=== PATIENT | female | born 1995 | race Caucasian/White ===

== ENCOUNTER 2019-09-09 17:32 | Emergency (ER) | payer OTHER, SELFPAY ==
[2019-09-09 17:43] VITALS: BP 150/97; PULSE 93; RESP 16; TEMP 37.2; O2SAT 98
--- NOTE | 2019-09-09 18:17 | ED.GENADULT ---
HPI - General Adult General Chief complaint: Urogenital-Female Stated complaint: Cough/fever/Possible Uti Time Seen by Provider: 09/09/19 18:17 Source: patient Mode of arrival: ambulatory Limitations: no limitations History of Present Illness HPI narrative: 24-year-old female patient presents to the [facility] with complaints of urinary symptoms x1 week. Patient states she has had pain with urination, urgency, frequency, low back pain and abdominal cramping. Patient states that she is thinks she might of started running fevers last night because she woke up drenched in sweat. Denies any nausea vomiting or diarrhea. Patient states she has been trying to get into her primary doctors all week to be seen but they could not get her in this week. Patient denies breast-feeding and states that her last. Was about a month ago. Patient states that she has had a little bit of blood noticed when she urinates but she states is very stringy and does not think that is her normal period blood. Related Data Home Medications Medication Instructions Recorded Confirmed alprazolam [Xanax] 0.25 mg PO DAILY 09/09/19 09/09/19 escitalopram oxalate [Lexapro] 20 mg PO DAILY 09/09/19 09/09/19 trazodone 50 mg PO DAILY 09/09/19 09/09/19 Allergies Allergy/AdvReac Type Severity Reaction Status Date / Time poison alana extract Allergy Mild RASH Verified 09/09/19 17:49 Review of Systems Review of Systems: Narrative: CONSTITUTIONAL: Positive subjective fever, denies chills, positive sweats. EYES: Denies visual changes, redness, or discharge. ENT: Denies rhinorrhea, congestion, sore throat, or otalgia. CARDIOVASCULAR: Denies chest pain, palpitations, or edema. RESPIRATORY: Denies cough or dyspnea. GASTROINTESTINAL: Positive lower abdominal cramping, denies nausea, vomiting, or diarrhea. GENITOURINARY: Denies dysuria, positive hematuria. Positive pain with urination, urgency and frequency x1 week SKIN: Denies rash or itching. MUSCULOSKELETAL: Positive low back pain, denies joint pain, or myalgia. NEUROLOGIC: Denies headache, numbness, or weakness. PSYCHIATRIC: Denies anxiety or depression. [facility] Past Medical History Medical History Anxiety Depression Fractures History of left wrist, right arm Hypothyroidism Kidney infection Kidney stones Scoliosis Seizures Sexually transmitted disease UTI (urinary tract infection) Surgical History Surgical History History of appendectomy Hx of tonsillectomy Previous section Social History Social History Smoking status: Never smoker Alcohol intake: never Gender identity (if verbalized by the patient): Female Comments At the time of my signature I agree with nursing past medical history, surgical, social, and family history. There is no relevant family history pertinent to the presenting complaint. Exam Narrative: Exam Narrative: GENERAL: Well-appearing, well-nourished, and in no acute distress. HEAD: Normocephalic, atraumatic. EYES: PERRLA and EOMI. ENT: Nares clear, no rhinorrhea or epistaxis. Mucous membranes moist. Posterior pharynx with no erythema, tonsillar margin, exudates or lesions present. NECK: Supple. No lymphadenopathy CHEST: Clear to auscultation. No respiratory distress. Patient able talk in clear complete sentences. HEART: Regular rate and rhythm. No murmur heard. Normal peripheral pulses. ABDOMEN: Soft, nontender, nondistended, normal active bowel sounds. Bilateral tenderness noted on CVA percussion. EXTREMITIES: Normal range of motion. No edema. SKIN: Warm, dry, no rash. NEURO: No focal deficits. Alert and oriented x3. Course Vital Signs Vital signs: Vital Signs Temperature 37.2 C 09/09/19 17:43 Pulse Rate 93 09/09/19 17:43 Respiratory Rate 16 09/09/19 17:43 Blood Pressure 150/97 H 08/12
== END 2019-09-09 18:32 | disposition home or self-care (01) ==
PROVIDERS: Emergency Provider Nurse Practitioner Family; PCP Family Medicine
DX: N30.01 Acute cystitis with hematuria (principal); F41.9 Anxiety disorder, unspecified; F32.9 Major depressive disorder, single episode, unspecified; E03.9 Hypothyroidism, unspecified; M41.9 Scoliosis, unspecified
CPT/HCPCS: 81003; 81025; 87086; 99213; G0463

== ENCOUNTER 2019-11-18 13:46 | Emergency (ER) | payer OTHER, SELFPAY ==
--- NOTE | ~2019-11-18 | CT_ITS ---
EXAMINATION: CT lumbar spine wo con EXAM DATE: 11/18/2019 15:11 INDICATION: Injury, low back pain. TECHNIQUE: Spiral CT of the lumbar spine was performed without contrast. Axial, coronal and sagittal images were reviewed. The dose-length product (DLP) for this examination was 746.11 mGy-cm. The e xposure was tailored according to patient size (auto mA exposure control), and iterative reconstructi on (ASIR) was used as additional dose reduction technique. There is no prior study for comparison. FINDINGS: The vertebral bodies are aligned in the AP dimension. Vertebral body and disc heights are w ell-maintained. There are no acute fractures identified. There is no spondylolysis. There is mild lum bar facet arthropathy. Neural foramen and central canal appear widely patent. Paraspinal soft tissue is unremarkable. IMPRESSION: 1. Mild lumbar facet arthropathy. 2. No acute findings. Reviewed, dictated and finalized at location A.
--- NOTE | ~2019-11-18 | CT_ITS ---
EXAMINATION: CT pelvis wo con EXAM DATE: 11/18/2019 15:11 INDICATION: Bucked off horse, injury with bilateral hip and low back pain. Initial encounter. TECHNIQUE: Spiral CT pelvis wo con was performed without contrast. Axial, coronal and sagittal imag es were reviewed. The dose-length product (DLP) for this examination was 432.12 mGy-cm. The exposur e was tailored according to patient size (auto mA exposure control), and iterative reconstruction ( IR) was used as additional dose reduction technique. 10/05/2015 FINDINGS: There are no acute hip, pelvic or sacral fractures or dislocations identified. There is no subcutaneous gas. There may be some subcutaneous soft tissue swelling over the right gluteus maximi ze. There are no radiopaque foreign bodies. Uterus and ovaries are unremarkable. Small physiologic free pelvic fluid. IMPRESSION: No hip or pelvic fracture. Reviewed, dictated and finalized at location A. IMPRESSION: No hip or pelvic fracture.
[2019-11-18 13:52] VITALS: BP 147/71; PULSE 83; RESP 16; TEMP 36.8; O2SAT 100
--- NOTE | 2019-11-18 14:03 | PC.NURSE ---
Pt unsure if hit head or LOC, pt c/o back pain and placed in C Collar.
--- NOTE | 2019-11-18 14:38 | PC.NURSE ---
C Collar removed by EDP Dr Freeman.
--- NOTE | 2019-11-18 14:40 | ED.FALL ---
HPI - Fall General Chief Complaint: Fall Stated Complaint: Hip pain; bucked off horse Time Seen by Provider: 11/18/19 14:08 History of Present Illness HPI Narrative: Patient is a 24-year-old female who presents the ER with bilateral hip pain right greater than left since last night. Patient was riding a horse when she got bucked off. She felt a little dizzy after striking the ground but did not lose consciousness. She had pain and her friends had to help her up off the ground and put her in a truck bed. She has had significant pain where she has been unable to walk since the fall beginning today. No numbness or tingling in her lower extremities or in her privates. She has had no inability to urinate/stool. She does not take any pain medication. Pain is worse when she performs flexion at the hip bilaterally. No neck pain. No headache or change in vision at this time. Awake alert and oriented x3. Related Data Home Medications Medication Instructions Recorded Confirmed alprazolam [Xanax] 0.25 mg PO DAILY 09/09/19 09/09/19 escitalopram oxalate [Lexapro] 20 mg PO DAILY 09/09/19 09/09/19 trazodone 50 mg PO HS 09/09/19 09/09/19 Allergies Allergy/AdvReac Type Severity Reaction Status Date / Time poison alana extract Allergy Mild RASH Verified 11/18/19 14:06 Review of Systems Review of Systems: All systems reviewed & are unremarkable except as noted in HPI and below Constitutional: Constitutional: Denies chills, Denies fever(s) and Denies weakness ENT: Denies nasal congestion and Denies sore throat Cardiovascular: Cardiovascular: Denies chest pain and Denies radiating jaw, neck or arm pain Respiratory: Respiratory: Denies cough and Denies dyspnea Gastrointestinal: Gastrointestinal: Denies abdominal pain, Denies nausea and Denies vomiting Musculoskeletal: Musculoskeletal: Reports myalgias, Reports arthralgias and Denies joint swelling Neurologic: Denies confusion, Denies focal weakness, Denies numbness and Denies weakness PMFSH Social History Social History Smoking status: Never smoker Alcohol intake: never Gender identity (if verbalized by the patient): Female Exam Narrative: Exam Narrative: GENERAL: Well-appearing, well-nourished, and in no acute distress. HEAD: Normocephalic, atraumatic. EYES: PERRL and EOMI. ENT: Mucous membranes moist. NECK: Supple. No midline tenderness of cervical spine. Normal range of motion. CHEST: Clear to auscultation. No respiratory distress. HEART: Regular rate and rhythm. Normal peripheral pulses. ABDOMEN: Soft, nontender, nondistended, normal active bowel sounds. EXTREMITIES: Patient has limited forward flexion and external rotation at the hips bilaterally with increased pain over the right hip with palpation. Pain is more towards the buttock than the hip and there is bruising and abrasions noted to the right buttock. Left buttock is free of bruising or abrasions. There are additional abrasions going down the right upper extremity at the elbow but no point tenderness and normal range of motion. SKIN: Warm, dry, no rash. Abrasions as noted above. NEURO: No focal deficits. Alert and oriented x3. Course Course Emergency Course: Patient informed of results. Up and ambulatory. Discharge home. Vital Signs Vital signs: Vital Signs Temperature 98.2 F 11/18/19 13:52 Pulse Rate 83 11/18/19 13:52 Respiratory Rate 16 11/18/19 13:52 Blood Pressure 147/71 H 11/18/19 13:52 Pulse Oximetry 100 11/18/19 13:52 Temperature 98.2 F 11/18/19 13:52 Pulse Rate 64 11/18/19 16:23 Respiratory Rate 14 11/18/19 16:23 Blood Pressure 117/64 11/18/19 16:23 Pulse Oximetry 99 11/18/19 16:23 MDM - Fall Lab Data Labs: UCG Bedside Result Negative Reference Range: Negative Discharge Plan Discharge Clinical Impression: Contusion of buttock Patient Disposition: Home, Se
[2019-11-18] MEDS: MORPHINE SULFATE 4 MG/ML INJ IV PUSH (14:51)
--- NOTE | 2019-11-18 14:51 | PC.NURSE ---
CT aware of neg preg test at this time.
[2019-11-18 14:52] VITALS: BP 117/64; PULSE 70; RESP 13; O2SAT 100
[2019-11-18 16:23] VITALS: BP 117/64; PULSE 64; RESP 14; O2SAT 99
[2019-11-18 17:07] VITALS: BP 120/75; PULSE 58; RESP 14; O2SAT 99
== END 2019-11-18 17:08 | disposition home or self-care (01) ==
PROVIDERS: Emergency Provider Emergency Medicine; PCP Family Medicine
DX: S30.0XXA Contusion of lower back and pelvis, initial encounter (principal); V80.010A Animal-rider injured by fall from or being thrown from horse in noncollision accident, initial encounter
CPT/HCPCS: 72131; 72192; 81025; 96374; 99284; J2270; L0140

== ENCOUNTER 2020-01-28 16:32 | Emergency (ER) | payer OTHER, SELFPAY ==
--- NOTE | 2020-01-28 16:41 | ED.ABDPAIN ---
HPI - Abdominal Pain General Chief Complaint: Anxiety <Magdi Savage PA-C - Last Filed: 01/28/20 17:26> Stated Complaint: anxiety <Magdi Savage PA-C - Last Filed: 01/28/20 17:26> Time Seen by Provider: 01/28/20 16:33 <Magdi Savage PA-C - Last Filed: 01/28/20 17:26> Source: patient <Magdi Savage PA-C - Last Filed: 01/28/20 17:26> Mode of arrival: EMS <Magdi Savage PA-C - Last Filed: 01/28/20 17:26> Limitations: no limitations <Magdi Savage PA-C - Last Filed: 01/28/20 17:26> History of Present Illness HPI narrative: Patient is a 24-year-old female who presents to emergency department for evaluation of not feeling well with anxiety that began today took a Xanax with no improvement approximately an hour and a half prior to arrival contacted EMS due to chest discomfort and anxiety. Patient on arrival to emergency department is in the room in no distress resting comfortably denying any pain does note she feels anxious. Patient with longstanding history of anxiety <Magdi Savage PA-C - Last Filed: 01/28/20 17:26> Related Data Home Medications: Home Medications Medication Instructions Recorded Confirmed alprazolam [Xanax] 0.25 mg PO DAILY 09/09/19 09/09/19 <Magdi Savage PA-C - Last Filed: 01/28/20 17:26> Allergies/Adverse Reactions: Allergies Allergy/AdvReac Type Severity Reaction Status Date / Time poison alana extract Allergy Mild RASH Verified 01/28/20 16:47 <Magdi Savage PA-C - Last Filed: 01/28/20 17:26> Review of Systems Review of Systems: All systems reviewed & are unremarkable except as noted in HPI and below <Magdi Savage PA-C - Last Filed: 01/28/20 17:26> [facility] Past Medical History Medical History: Medical History Anxiety Depression Fractures History of left wrist, right arm Hypothyroidism Kidney infection Kidney stones Scoliosis Seizures Sexually transmitted disease UTI (urinary tract infection) <Magdi Savage PA-C - Last Filed: 01/28/20 17:26> Surgical History Surgical History: Surgical History History of appendectomy Hx of tonsillectomy Previous section <Magdi Savage PA-C - Last Filed: 01/28/20 17:26> Social History Social History: Social History Smoking status: Never smoker Alcohol intake: never Gender identity (if verbalized by the patient): Female <Magdi Savage PA-C - Last Filed: 01/28/20 17:26> Exam Narrative: Exam Narrative: GENERAL: Well-appearing, well-nourished, and in no acute distress. HEAD: Normocephalic, atraumatic. EYES: PERRLA and EOMI. ENT: Nares clear, no rhinorrhea or epistaxis. Mucous membranes moist. CHEST: Clear to auscultation. No respiratory distress. No wheezes rales or rhonchi HEART: Regular rate and rhythm. No murmur heard. Normal peripheral pulses. ABDOMEN: Soft, nontender, nondistended EXTREMITIES: Normal range of motion. No edema. SKIN: Warm, dry, no rash. NEURO: No focal deficits. Alert and oriented x3. Cranial nerves II through XII grossly intact PSYCH: Normal mood and affect. <Magdi Savage PA-C - Last Filed: 01/28/20 17:26> Course Course Emergency Course: Patient in the room in no distress aware of case findings treatment plan and diagnosis agreeing to follow-up as directed given medications and fluids in the emergency department <Magdi Savage PA-C - Last Filed: 01/28/20 17:26> Vital Signs Vital signs: Vital Signs Temperature 98.7 F 01/28/20 16:43 Pulse Rate 79 01/28/20 16:43 Respiratory Rate 18 01/28/20 16:43 Blood Pressure 141/88 H 01/28/20 16:43 Pulse Oximetry 100 01/28/20 16:43 Temperature 98.7 F 01/28/20 16:43 Pulse Rate 79 01/28/20 16:43 Respiratory Rate 18 01/28/20 16
[2020-01-28 16:43] VITALS: BP 141/88; PULSE 79; RESP 18; TEMP 37.1; O2SAT 100
--- NOTE | 2020-01-28 16:43 | ECG_ITS ---
Measurements Intervals [place] Rate: 81 P: 60 NE: 140 QRS: 74 QRSD: 90 T: 48 QT: 394 QTc: 460 Interpretive Statements SINUS RHYTHM POSSIBLE LEFT ATRIAL ENLARGEMENT BASELINE ARTIFACT- I, AVL BORDERLINE ECG Electronically Signed On 01-28-2020 17:21:24 CDT by Colton Knott D.O.
[2020-01-28] MEDS: SODIUM CHLORIDE 0.9% IV 1,000 ML 999 ML IV CONT (17:03)
[2020-01-28 17:07] LABS: Add Urine Microscopic? YES; Appearance Urine Cloudy (Clear); Bacteria Urine 4+ /hpf; Bilirubin Urine Negative (Negative); Blood Urine Negative (Negative); Color Urine Yellow (Yellow); Glucose Urine UA Negative (Negative); Ketones Urine Trace mg/dL (Negative); Leukocyte Esterase Ur 1+ LEU/UL (Negative); Nitrate Urine Negative (Negative); Protein Urine Negative (Negative); RBC Urine 0-2 /hpf (0-2); Squamous Epithelial Cell Urine Moderate /hpf (Few); Urobilinogen Urine Negative mg/dL (<2.0)
[2020-01-28 17:41] LABS: Amphetamine Screen Urine Negative (Negative); Barbiturate Screen Urine Negative (Negative); Benzodiazepines Screen Urine Negative (Negative); Cannabinoid Screen Urine Negative (Negative); Cocaine Screen Urine Negative (Negative); Methadone Screen Urine Negative (Negative); Opiate Screen Urine Negative (Negative); Phencyclidine Screen Urine Negative (Negative)
== END 2020-01-28 18:06 | disposition home or self-care (01) ==
PROVIDERS: Emergency Medicine Emergency Medical Services; Emergency Provider Emergency Medicine; PCP Family Medicine
DX: F41.9 Anxiety disorder, unspecified (principal); R53.83 Other fatigue; F32.9 Major depressive disorder, single episode, unspecified; E03.9 Hypothyroidism, unspecified; Z87.442 Personal history of urinary calculi
CPT/HCPCS: 80307; 81001; 81025; 87077; 87086; 87088; 87186; 93005; 96361; 96374; 99284; J2060; J7030

== ENCOUNTER 2020-04-24 19:09 | Emergency (ER) | payer OTHER, SELFPAY ==
--- NOTE | ~2020-04-24 | XR_ITS ---
XR chest 1V portable DATE: 04/24/2020 20:09 INDICATION: Fever, body aches, diarrhea TECHNIQUE: Portable upright AP chest on 04/24/2020 at 2001 hours COMPARISON: 10/28/2005 2 view pediatric chest FINDINGS: Normal heart size. No hilar or mediastinal enlargement. No pulmonary infiltrate or consolid ation, pleural effusion or pulmonary vascular congestion or pneumothorax. Included skeletal structure s are unremarkable. IMPRESSION: Negative Reviewed, dictated and finalized at location A. [employer] IMPRESSION: Negative
[2020-04-24 19:12] VITALS: BP 146/95; PULSE 108; RESP 16; TEMP 36.7; O2SAT 100
--- NOTE | 2020-04-24 19:57 | WPDEDEXPGENP ---
HPI - General Ped General Chief complaint: Fever Stated complaint: fever Time Seen by Provider: 04/24/20 19:29 Source: patient Mode of arrival: ambulatory Limitations: no limitations Nursing Documentation: reviewed/agree History of Present Illness HPI narrative: Patient is a 25-year-old female who presents to emergency department for evaluation of fever chills body aches diarrhea with exposure to a Covid positive individual patient denies vomiting notes that her symptoms began yesterday patient on arrival is in no distress does not appear uncomfortable Related Data Home Medications Medication Instructions Recorded Confirmed alprazolam [Xanax] 0.25 mg PO DAILY 09/09/19 09/09/19 Allergies Allergy/AdvReac Type Severity Reaction Status Date / Time poison alana extract Allergy Mild RASH Verified 04/24/20 19:15 Pediatric Review of Systems : All systems ED: reviewed and negative except as stated PMFSH Past Medical History Medical History (Updated 04/24/20 @ 20:17 by Magdi Savage PA-C) Anxiety Depression Fractures History of left wrist, right arm Hypothyroidism Kidney infection Kidney stones Scoliosis Seizures Sexually transmitted disease UTI (urinary tract infection) Surgical History Surgical History History of appendectomy Hx of tonsillectomy Previous section Family History Family History Mother Family history of mental disorder Depression Social History Social History Smoking status: Never smoker Alcohol intake: never Gender identity (if verbalized by the patient): Female Pediatric Exam Narrative: Physical exam: GENERAL: Well-appearing, well-nourished, and in no acute distress. HEAD: Normocephalic, atraumatic. EYES: PERRLA and EOMI. ENT: Nares clear, no rhinorrhea or epistaxis. Mucous membranes moist. CHEST: Clear to auscultation. No respiratory distress. No wheezes rales or rhonchi HEART: Regular rate and rhythm. No murmur heard. EXTREMITIES: Normal range of motion. No edema. SKIN: Warm, dry, no rash. NEURO: No focal deficits. Alert and oriented x3. PSYCH: Normal mood and affect. Course Course Emergency Course: Patient in the room in no distress aware of case findings treatment plan and diagnosis felt appropriate for discharge home swabbed for COVID-19 Vital Signs Vital signs: Vital Signs Temperature 98.0 F 04/24/20 19:12 Pulse Rate 108 H 04/24/20 19:12 Respiratory Rate 16 04/24/20 19:12 Blood Pressure 146/95 H 04/24/20 19:12 Pulse Oximetry 100 04/24/20 19:12 Temperature 98.0 F 04/24/20 19:12 Pulse Rate 108 H 04/24/20 19:12 Respiratory Rate 16 04/24/20 19:12 Blood Pressure 146/95 H 04/24/20 19:12 Pulse Oximetry 100 04/24/20 19:12 Medical Decision Making MDM Narrative Medical decision making narrative: Patient tested for Covid no distress will be discharged home no pneumonia swab for Covid will follow with primary care Vital Signs Vital Signs: Vital Signs Temperature 98.0 F 04/24/20 19:12 Pulse Rate 108 H 04/24/20 19:12 Respiratory Rate 16 04/24/20 19:12 Blood Pressure 146/95 H 04/24/20 19:12 Pulse Oximetry 100 04/24/20 19:12 Temperature 98.0 F 04/24/20 19:12 Pulse Rate 108 H 04/24/20 19:12 Respiratory Rate 16 04/24/20 19:12 Blood Pressure 146/95 H 04/24/20 19:12 Pulse Oximetry 100 04/24/20 19:12 Discharge Plan Discharge Clinical Impression: Viral syndrome Patient Disposition: Home, Self-Care Condition: Stable Instructions: Antibiotic Form, COVID-19 (Coronavirus Disease 2019) (ED) Additional Instructions: Follow up with your primary care provider in 1 day to set up for reevaluation and to receive your COVID-19 results. Go to ER for shortness of breath, difficulty breathing, chest pain, fever/chills, weakne
[2020-04-24 20:27] VITALS: BP 131/90; PULSE 111; RESP 17; TEMP 36.7; O2SAT 100
[2020-04-25 14:52] LABS: SARS-CoV-2 RNA PCR Negative
== END 2020-04-24 20:28 | disposition home or self-care (01) ==
PROVIDERS: Emergency Medicine Emergency Medical Services; Emergency Provider Emergency Medicine; PCP Family Medicine
DX: B34.9 Viral infection, unspecified (principal); Z20.828 Contact with and (suspected) exposure to other viral communicable diseases; F41.9 Anxiety disorder, unspecified; F32.9 Major depressive disorder, single episode, unspecified; E03.9 Hypothyroidism, unspecified; Z87.442 Personal history of urinary calculi; Z87.440 Personal history of urinary (tract) infections
CPT/HCPCS: 71045; 87635; 99283; C9803; U0003

== ENCOUNTER 2020-05-05 10:15 | Emergency (ER) | payer OTHER, SELFPAY ==
[2020-05-05 10:24] VITALS: BP 138/70; PULSE 78; RESP 15; TEMP 36.4; O2SAT 100
--- NOTE | 2020-05-05 10:24 | ED.GENADULT ---
HPI - General Adult General Chief complaint: Urogenital-Female Stated complaint: poss uti Time Seen by Provider: 05/05/20 10:24 Source: patient Mode of arrival: ambulatory Limitations: no limitations History of Present Illness HPI narrative: 25-year-old female patient presents to the [facility] with complaints of urinary tract symptoms for the past 2 days. Patient states she has had burning with urination, urgency and frequency. Denies any fevers, body aches or chills. Denies any low back pain or abdominal pain. Denies or breast-feeding but states that she is sexually active and not on any control. Patient states that she does not have any concerns for STDs and denies any vaginal discharge. Related Data Home Medications Medication Instructions Recorded Confirmed alprazolam [Xanax] 0.25 mg PO DAILY 09/09/19 05/05/20 sertraline 50 mg PO DAILY 05/05/20 05/05/20 Allergies Allergy/AdvReac Type Severity Reaction Status Date / Time poison alana extract Allergy Mild RASH Verified 05/05/20 10:35 Review of Systems Review of Systems: Narrative: CONSTITUTIONAL: Denies fever, chills, or sweats. EYES: Denies visual changes, redness, or discharge. ENT: Denies rhinorrhea, congestion, sore throat, or otalgia. CARDIOVASCULAR: Denies chest pain, palpitations, or edema. RESPIRATORY: Denies cough or dyspnea. GASTROINTESTINAL: Denies abdominal pain, nausea, vomiting, or diarrhea. GENITOURINARY: Positive dysuria, denies hematuria. Positive burning pain with urination, urgency and frequency. SKIN: Denies rash or itching. MUSCULOSKELETAL: Denies back pain, joint pain, or myalgia. NEUROLOGIC: Denies headache, numbness, or weakness. PSYCHIATRIC: Denies anxiety or depression. [facility] Past Medical History Medical History (Updated 05/05/20 @ 11:02 by PATITO Lassiter) Anxiety Depression Fractures History of left wrist, right arm Hypothyroidism Kidney infection Kidney stones Scoliosis Seizures Sexually transmitted disease UTI (urinary tract infection) Surgical History Surgical History History of appendectomy Hx of tonsillectomy Previous section Family History Family History Mother Family history of mental disorder Depression Social History Social History Smoking status: Never smoker Alcohol intake: never Gender identity (if verbalized by the patient): Female Comments At the time of my signature I agree with nursing past medical history, surgical, social, and family history. There is no relevant family history pertinent to the presenting complaint. Exam Narrative: Exam Narrative: GENERAL: Well-appearing, well-nourished, and in no acute distress. HEAD: Normocephalic, atraumatic. EYES: PERRLA and EOMI. ENT: Nares clear, no rhinorrhea or epistaxis. Mucous membranes moist. NECK: Supple. No lymphadenopathy CHEST: Clear to auscultation. No respiratory distress. HEART: Regular rate and rhythm. No murmur heard. Normal peripheral pulses. ABDOMEN: Soft, nontender, nondistended, normal active bowel sounds. No CVA tenderness on percussion EXTREMITIES: Normal range of motion. No edema. SKIN: Warm, dry, no rash. NEURO: No focal deficits. Alert and oriented x3. Course Vital Signs Vital signs: Vital Signs Temperature 36.4 C 05/05/20 10:24 Pulse Rate 78 05/05/20 10:24 Respiratory Rate 15 05/05/20 10:24 Blood Pressure 138/70 05/05/20 10:24 Pulse Oximetry 100 05/05/20 10:24 Temperature 36.4 C 05/05/20 10:24 Pulse Rate 78 05/05/20 10:24 Respiratory Rate 15 05/05/20 10:24 Blood Pressure 138/70 05/05/20 10:24 Pulse Oximetry 100 05/05/20 10:24 Vital signs reviewed Medical Decision Making Differential Diagnosis Differential Diagnosis: Differential diagnosis: Uncomplicated lower UTI, uncomplicated UTI,
== END 2020-05-05 11:10 | disposition home or self-care (01) ==
PROVIDERS: Emergency Provider Nurse Practitioner Family; PCP Family Medicine
DX: N30.01 Acute cystitis with hematuria (principal); E03.9 Hypothyroidism, unspecified; M41.9 Scoliosis, unspecified; F41.9 Anxiety disorder, unspecified; F32.9 Major depressive disorder, single episode, unspecified
CPT/HCPCS: 81003; 81025; 87077; 87086; 87088; 87186; 99213; G0463

== ENCOUNTER 2020-07-16 14:43 | Emergency (ER) | payer OTHER, SELFPAY ==
--- NOTE | ~2020-07-16 | CT_ITS ---
EXAMINATION: CT abdomen pelvis w con EXAM DATE: 07/16/2020 16:35 INDICATION: Generalized abdominal pain, bloating nausea and emesis. TECHNIQUE: Spiral CT of the abdomen and pelvis was performed following intravenous injection of 100 m L Omnipaque 350. Axial, coronal and sagittal images were reviewed. The dose-length product (DLP) fo r this examination was 385.81 mGy-cm. The exposure was tailored according to patient size (auto mA e xposure control), and iterative reconstruction (ASIR) was used as additional dose reduction technique . Comparison is made to prior examination from 11/18/2019. FINDINGS: The liver, spleen, adrenal glands and pancreas are unremarkable. Gallbladder is unremarkab le. No biliary obstruction. Portal and splenic veins are patent. Kidneys enhance symmetrically. T here is no hydronephrosis. The uterus is unremarkable. Small amount of free pelvic fluid, likely ph ysiologic The bladder is unremarkable. There is no retroperitoneal or pelvic lymphadenopathy. The appendix is not positively visualized. There is no pericecal inflammatory change to suggest appe ndicitis. The stomach and small bowel are unremarkable. There is expected amount of colonic stool. No free intraperitoneal gas. The heart is normal in size. There are no pericardial or pleural e ffusions. The lung bases are unremarkable. Mild to moderate thoracolumbar levoscoliosis. IMPRESSION: 1. No acute intra-abdominal findings. Reviewed, dictated and finalized at location B. CLINICAL APPEALS
[2020-07-16 14:47] VITALS: BP 145/86; PULSE 89; RESP 16; TEMP 36.3; O2SAT 100
[2020-07-16 14:56] LABS: Basophils Percent Auto 0.5 % (0.2-1.2); Eosinophils Absolute Auto 0.1 K/mm3 (0-0.3); Eosinophils Percent Auto 1.5 % (0-4.4); Hematocrit 40.5 % (37.0-47.0); Hemoglobin 13.5 g/dL (12.0-15.0); Immature Granulocyte Absolute 0.02 K/mm3 (0.00-0.031); Immature Granulocyte Percent A 0.3 % (0-0.5); Lymphocytes Absolute Auto 1.53 K/mm3 (0.9-3.2); Lymphocytes Percent Auto 25.5 % (18.3-44.2); Mean Corpuscular HGB Conc 33.3 g/dl (32-36); Mean Corpuscular Hemoglobin 29.6 pg (26-34); Mean Corpuscular Volume 88.8 fl (80-100); Mean Platelet Volume 10.5 fl (7.4-10.4); Monocytes Absolute Auto 0.4 K/mm3 (0.1-0.6); Monocytes Percent Auto 6.3 % (2.6-8.5); Neutrophils Percent Auto 65.9 % (45.5-73.1); Platelet Count Result 257 k/mm3 (150-375); Red Blood Count 4.56 M/mm3 (4.2-5.4); Red Cell Distribution Width 12.3 % (11.5-14.5)
[2020-07-16 15:04] LABS: Add Urine Microscopic? NO; Appearance Urine Clear (Clear); Bilirubin Urine Negative (Negative); Blood Urine Negative (Negative); Color Urine Yellow (Yellow); Glucose Urine UA Negative (Negative); Ketones Urine Negative (Negative); Leukocyte Esterase Ur Negative LEU/UL (Negative); Nitrate Urine Negative (Negative); Protein Urine Negative (Negative); Specific Grav Ur 1.017 (1.001-1.035); Urobilinogen Urine Negative mg/dL (<2.0)
[2020-07-16 15:07] LABS: Alanine Aminotransferase 17 U/L (4-35); Albumin Level 4.8 g/dL (3.5-5.1); Alkaline Phosphatase 50 U/L (38-126); Anion Gap 9 mmol/L (8-16); Aspartate Amino Transferase 26 U/L (14-36); Bilirubin,Total 0.4 mg/dL (0.2-1.3); Blood Urea Nitrogen 10 mg/dL (7-17); Calcium 9.4 mg/dL (8.4-10.2); Carbon Dioxide 25 mmol/L (22-30); Chloride 106 mmol/L (98-107); Estimated CRCL calculation 112 ml/min; Estimated Glomerular Filt Rate > 60; Glucose 123 mg/dL (65-105); Lipase 121 U/L (23-300); Potassium 3.5 mmol/L (3.4-5.0); Sodium 140 mmol/L (137-145)
--- NOTE | 2020-07-16 15:45 | ED.ABDPAIN ---
HPI - Abdominal Pain General Chief Complaint: Abdominal Pain Stated Complaint: abdominal pain Time Seen by Provider: 07/16/20 15:24 Source: patient Mode of arrival: ambulatory Limitations: no limitations History of Present Illness HPI narrative: A 25-year-old female comes into the emergency department today with complaints of generalized abdominal pain, as well as gaseous pains. She states it feels like her whole stomach is moving. She does endorse some nausea and vomiting. Patient states that this been going on for the last month or so. She endorses pain in the right upper quadrant and suprapubic area. She states that she just finished her menstrual cycle, started a new control called NuvaRing. She does note a brownish discharge after this. Patient states that she is sexually active. Related Data Home Medications Medication Instructions Recorded Confirmed alprazolam [Xanax] 0.25 mg PO DAILY 09/09/19 05/05/20 sertraline 50 mg PO DAILY 05/05/20 05/05/20 Allergies Allergy/AdvReac Type Severity Reaction Status Date / Time poison alana extract Allergy Mild RASH Verified 06/10/20 13:06 Review of Systems Review of Systems: Narrative: CONSTITUTIONAL: Denies fever, chills, or sweats. EYES: Denies visual changes, redness, or discharge. ENT: Denies rhinorrhea, congestion, sore throat, or otalgia. CARDIOVASCULAR: Denies chest pain, palpitations, or edema. RESPIRATORY: Denies cough or dyspnea. GASTROINTESTINAL: Endorses gaseous distention of the stomach. GENITOURINARY: Denies dysuria or hematuria. SKIN: Denies rash or itching. MUSCULOSKELETAL: Denies back pain, joint pain, or myalgia. NEUROLOGIC: Denies headache, numbness, dizziness, or weakness. PSYCHIATRIC: Denies anxiety or depression. [facility] Past Medical History Medical History (Updated 07/16/20 @ 17:53 by Fabricio Odonnell DO) Anxiety Depression Fractures History of left wrist, right arm Hypothyroidism Kidney infection Kidney stones Scoliosis Seizures Sexually transmitted disease UTI (urinary tract infection) Surgical History Surgical History History of appendectomy Hx of tonsillectomy Previous section Family History Family History Mother Family history of mental disorder Depression Hypertension Grandparent Cerebrovascular accident Social History Social History Smoking status: Current every day smoker (e-cigarettes) Tobacco type: e-cigarettes/vaping Alcohol intake: current Drinks per week: 2 Substance use: never Gender identity (if verbalized by the patient): Female Exam Narrative: Exam Narrative: GENERAL: Well-appearing, well-nourished, and in no acute distress. HEAD: Normocephalic, atraumatic. EYES: PERRLA and EOMI. ENT: Nares clear, no rhinorrhea or epistaxis. Mucous membranes moist. Oropharynx without tonsillar hypertrophy exudate or other lesions. Bilateral TMs pearly young nonbulging NECK: Supple. No adenopathy or masses. No carotid bruits or JVD CHEST: Clear to auscultation. No respiratory distress. No wheezes rales or rhonchi HEART: Regular rate and rhythm. No murmur heard. Normal peripheral pulses. ABDOMEN: Soft, nontender, nondistended, normal active bowel sounds. : Chaperoned by AARON Her. Clitoral piercing, normal external exam. Cervix see, thin brown discharge. EXTREMITIES: Normal range of motion. No edema. SKIN: Warm, dry, no rash. NEURO: No focal deficits. Alert and oriented x3. PSYCH: Normal mood and affect. Course Reevaluation(s) Reevaluation #1: Reevaluated patient provided care update. Performed pelvic exam chaperoned by SKYLAR Her. Informed patient of reassuring findings in her work-up. Discussed treatment plan and discharge. Time: 17:30 Vital Signs Vital signs: Vital Signs Temperature 36.3 C L 07/16/20 14:47 Pulse Ra
[2020-07-16 18:26] VITALS: BP 140/78; PULSE 85; RESP 18; O2SAT 99
== END 2020-07-16 18:27 | disposition home or self-care (01) ==
PROVIDERS: Emergency Provider Emergency Medicine; PCP Family Medicine
DX: R10.11 Right upper quadrant pain (principal); R10.2 Pelvic and perineal pain; N89.8 Other specified noninflammatory disorders of vagina; R14.0 Abdominal distension (gaseous); F41.9 Anxiety disorder, unspecified; F32.9 Major depressive disorder, single episode, unspecified; E03.9 Hypothyroidism, unspecified; Z87.442 Personal history of urinary calculi; G40.909 Epilepsy, unspecified, not intractable, without status epilepticus; Z87.440 Personal history of urinary (tract) infections
CPT/HCPCS: 36415; 74177; 80053; 81003; 81025; 83690; 85025; 87070; 87491; 87591; 87808; 99284; Q9967

== ENCOUNTER 2020-08-28 01:29 | Day surgery (SDC) | payer OTHER, SELFPAY ==
[2020-08-20 08:54] VITALS: BMI 24.4
[2020-08-28 13:42] VITALS: BP 140/81; PULSE 76; RESP 18; TEMP 36.7; O2SAT 99; BMI 24.5
[2020-08-28] MEDS: LACTATED RINGERS 1,000 ML 150 ML IV CONT (14:00)
--- NOTE | 2020-08-28 14:04 | WPDANESEPPF ---
Anes - Initial Pre Proc Eval Procedure: Operation Date: 08/28/20 14:30 Proposed Procedures p Esophagogastroduodenoscopy - David Friedman MD Date/Time: 08/28/20 14:04 Surgeon: David Friedman MD Pre Op Diagnosis: gastroenteritis, abdominal pain Patient Data Age: 25 Gender: F Height: 5 ft 9 in Weight: 75.3 kg Last Vital Signs Temp 98.1 F 08/28/20 13:42 Pulse 76 08/28/20 13:42 Resp 18 08/28/20 13:42 BP 140/81 08/28/20 13:42 Pulse Ox 99 08/28/20 13:42 Allergies Allergy/AdvReac Type Severity Reaction Status Date / Time poison alana extract Allergy Mild RASH Verified 08/28/20 13:39 Home Medications Medication Instructions Recorded Confirmed Type alprazolam [Xanax] 0.25 mg PO DAILY PRN 09/09/19 08/28/20 History sertraline 50 mg PO DAILY 05/05/20 08/28/20 History etonogestrel 0.12 mg-ethinyl 1 vag ring VAGINAL .COMPLEX #3 ea 07/07/20 08/28/20 Rx estradiol 0.015 mg/24 hr vaginal ring dicyclomine 20 mg PO QID #80 cap 07/16/20 08/28/20 Rx hydroxyzine HCl 50 mg PO TID PRN 08/20/20 08/28/20 History pantoprazole 40 mg PO BID 08/20/20 08/28/20 History Patient hx anesthesia problems: none Family hx anesthesia problems: none [facility] Past Medical History Medical History (Updated 07/17/20 @ 00:00 by Background Dalicha) Anxiety Depression Fractures History of left wrist, right arm Hypothyroidism Kidney infection Kidney stones Scoliosis Seizures Sexually transmitted disease UTI (urinary tract infection) Surgical History Surgical History History of appendectomy Hx of tonsillectomy Previous section Family History Family History Mother Family history of mental disorder Depression Hypertension Grandparent Cerebrovascular accident Social History Social History Years smoked: 3 Smoking status: Current every day smoker Tobacco type: cigarettes and smokeless tobacco Smoking end date: 08/17/19 Additional smoking assessment comments: STOPPED SMOKING/STARTED VAPING Alcohol intake: current Drinks per week: 2 Alcohol use details: NONE SINCE JUNE 2020 Substance use: never Substance use type: does not use Living arrangements: alone Gender identity (if verbalized by the patient): Female Spiritual care concerns: No Anes - Eval Final PreProcedure Day of Procedure 08/28/20 14:04 Patient weight: normal Heart: regular rate and rhythm Lungs: clear to auscultation Airway: Mallampati scale class II Neurological: alert and oriented Last oral intake: >/= 8 hours ASA classification: III Emergent: no Anesthetic plan: proceed Anesthesia type and monitoring: general GIVS and standard monitoring Informed Consent: The patient's anesthetic plan and its attendant risks and benefits were discussed with the patient/family/POA. Questions were solicited and answers provided to the satisfaction of the patient/family/POA.
--- NOTE | 2020-08-28 14:51 | PM.HPGS ---
History of Present Illness History of Present Illness Consent: Risks, benefits, and alternatives have been discussed and questions answered. Patient agrees to proceed with procedure. Chief complaint: gastroenteritis, abdominal pain Narrative: Daisy Fritz is a 25 year old female wiht 2 months of intermittent upper abdominal pain and bloating, ER visit with normal CT scan and blood work, never had egd Review of Systems Constitutional: Constitutional: Denies headache(s) and Denies weakness Eyes: Eyes: Denies blurry vision ENT: Reports Normal hearing present, Denies headache(s) and Denies neck pain Cardiovascular: Cardiovascular: Denies chest pain and Denies dyspnea Respiratory: Respiratory: Denies dyspnea Gastrointestinal: Gastrointestinal: Reports no additional gastrointestinal complaints Genitourinary: Genitourinary: Denies dysuria Musculoskeletal: Musculoskeletal: Denies neck pain Integumentary/Breasts: Skin/Breast: Denies dry skin Neurologic: Reports Normal hearing present, Denies headache(s) and Denies weakness Psychiatric: Psychiatric: Denies anxiety Endocrine: Endocrine: Denies change in body appearance Hematologic/Lymphatic: Hematologic/Lymphatic: Denies easy bleeding Allergic/Immunologic: Allergic/Immunologic: Denies urticaria PMFSH Past Medical History Medical History (Updated 08/28/20 @ 14:52 by David Friedman MD) Anxiety Bloating Depression Fractures History of left wrist, right arm Hypothyroidism Kidney infection Kidney stones Scoliosis Seizures Sexually transmitted disease Upper abdominal pain UTI (urinary tract infection) Surgical History Surgical History History of appendectomy Hx of tonsillectomy Previous section Family History Family History Mother Family history of mental disorder Depression Hypertension Grandparent Cerebrovascular accident Social History Social History Years smoked: 3 Smoking status: Current every day smoker Tobacco type: cigarettes and smokeless tobacco Smoking end date: 08/17/19 Additional smoking assessment comments: STOPPED SMOKING/STARTED VAPING Alcohol intake: current Drinks per week: 2 Alcohol use details: NONE SINCE JUNE 2020 Substance use: never Substance use type: does not use Living arrangements: alone Gender identity (if verbalized by the patient): Female Spiritual care concerns: No Meds Home Medications and Allergies Home Medications Medication Instructions Recorded Confirmed Type alprazolam [Xanax] 0.25 mg PO DAILY PRN 09/09/19 08/28/20 History sertraline 50 mg PO DAILY 05/05/20 08/28/20 History etonogestrel 0.12 mg-ethinyl 1 vag ring VAGINAL .COMPLEX #3 ea 07/07/20 08/28/20 Rx estradiol 0.015 mg/24 hr vaginal ring dicyclomine 20 mg PO QID #80 cap 07/16/20 08/28/20 Rx hydroxyzine HCl 50 mg PO TID PRN 08/20/20 08/28/20 History pantoprazole 40 mg PO BID 08/20/20 08/28/20 History Allergies Allergy/AdvReac Type Severity Reaction Status Date / Time poison alana extract Allergy Mild RASH Verified 08/28/20 13:39 Vital Signs Vital Signs - 24 hr 08/28/20 13:42 Temperature 98.1 F Pulse Rate 76 Respiratory Rate 18 Blood Pressure 140/81 Pulse Oximetry 99 Exam Const: General: comfortable and no acute distress HENMT: General nose exam: Normal nares present Eyes: General: appearance normal, both eyes and all related structures Neck: Neck: no JVD Resp: Auscultation: clear to auscultation bilaterally Cardio: Rate: regular rate Rhythm: regular rhythm GI: Inspection: non-distended GI Palp: Yes Soft to palpation Skin: General skin exam: normal color Neuro: General: gait normal Speech: normal speech Extrem: General: normal to inspection Psych: Mental Status: mental status grossly
[2020-08-28 14:53] VITALS: BP 102/73; PULSE 74; RESP 26; O2SAT 100
[2020-08-28 15:03] VITALS: BP 111/72; PULSE 74; RESP 26; O2SAT 100
[2020-08-28 15:12] VITALS: BP 113/73; PULSE 67; RESP 15; O2SAT 100
== END 2020-08-28 15:19 | disposition home or self-care (01) ==
PROVIDERS: PCP Family Medicine; Visit Provider Internal Medicine Gastroenterology
PROC: 0DJ08ZZ Inspection of Upper Intestinal Tract, Via Natural or Artificial Opening Endoscopic (ICD-10-PCS; CPT 43235; principal; 2020-08-28 14:30)
DX: K29.50 Unspecified chronic gastritis without bleeding (principal); K20.80 Other esophagitis without bleeding; F41.8 Other specified anxiety disorders; E03.9 Hypothyroidism, unspecified; F17.290 Nicotine dependence, other tobacco product, uncomplicated
CPT/HCPCS: 43239; 88305; J2704; J7120

== ENCOUNTER 2020-11-19 18:18 | Emergency (ER) | payer OTHER, SELFPAY ==
[2020-11-19 18:26] VITALS: BP 135/81; PULSE 76; RESP 16; TEMP 36.8; O2SAT 100
--- NOTE | 2020-11-19 18:42 | ED.URI ---
HPI - URI/Sore Throat General Chief Complaint: Upper Respiratory Infection Stated Complaint: SORE THROAT Time Seen by Provider: 11/19/20 18:42 Source: patient and RN notes reviewed Mode of arrival: ambulatory Limitations: no limitations History of Present Illness HPI Narrative: 25-year-old female presents to the [facility] with complaints of a sore throat since this morning. Denies taking anything for her symptoms. Denies fever, chest pain, shortness of breath. Denies abdominal pain, nausea, vomiting or diarrhea Related Data Home Medications Medication Instructions Recorded Confirmed alprazolam [Xanax] 0.25 mg PO DAILY PRN 09/09/19 08/28/20 sertraline 50 mg PO DAILY 05/05/20 08/28/20 hydroxyzine HCl 50 mg PO TID PRN 08/20/20 08/28/20 pantoprazole 40 mg PO BID 08/20/20 08/28/20 Allergies Allergy/AdvReac Type Severity Reaction Status Date / Time poison alana extract Allergy Mild RASH Verified 08/28/20 13:39 Review of Systems Review of Systems: All systems reviewed & are unremarkable except as noted in HPI and below Constitutional: Constitutional: Reports no additional constitutional complaints, Denies chills, Denies fever(s) and Denies weakness Eyes: Eyes: Reports no additional eye complaints ENT: Reports as per HPI, Denies dizziness and Reports sore throat Cardiovascular: Cardiovascular: Reports no additional cardiovascular complaints and Denies chest pain Respiratory: Respiratory: Reports no additional respiratory complaints, Denies cough, Denies dyspnea and Denies wheezing Gastrointestinal: Gastrointestinal: Reports no additional gastrointestinal complaints, Denies abdominal pain, Denies diarrhea, Denies nausea and Denies vomiting Genitourinary: Genitourinary: Reports no additional female genitourinary complaints Musculoskeletal: Musculoskeletal: Reports no additional musculoskeletal complaints, Denies back pain, Denies joint swelling and Denies muscle cramps Integumentary/Breasts: Skin/Breast: Reports system reviewed and no additional complaints, except as docu and Denies rash Neurologic: Reports system reviewed and no additional complaints, except as documented, Denies dizziness, Denies headache(s) and Denies numbness Psychiatric: Psychiatric: Reports no additional psychiatric complaints Endocrine: Endocrine: Reports no additional endocrine complaints PMFSH Past Medical History Medical History Anxiety Bloating Depression Fractures History of left wrist, right arm Hypothyroidism Kidney infection Kidney stones Scoliosis Seizures Sexually transmitted disease Upper abdominal pain UTI (urinary tract infection) Surgical History Surgical History History of appendectomy Hx of tonsillectomy Previous section Family History Family History Mother Family history of mental disorder Depression Hypertension Grandparent Cerebrovascular accident Social History Social History Years smoked: 3 Smoking status: Current every day smoker Tobacco type: cigarettes and smokeless tobacco Smoking end date: 08/17/19 Additional smoking assessment comments: STOPPED SMOKING/STARTED VAPING Alcohol intake: current Drinks per week: 2 Substance use: never Substance use type: does not use Gender identity (if verbalized by the patient): Female Spiritual care concerns: No Comments At the time of my signature, I reviewed and agree with the nursing past medical, surgical, social, and family history. There is no relevant family history pertinent to the patient complaint. Exam Const: General: healthy appearing, no acute distress and alert Nutritional Appearance: well nourished Orientation/consciousness: patient oriented x3 HENMT: Head: normal to inspection Ears: external ears normal and TM's no
== END 2020-11-19 18:55 | disposition home or self-care (01) ==
PROVIDERS: Emergency Provider Nurse Practitioner; PCP Family Medicine
DX: J02.9 Acute pharyngitis, unspecified (principal); F41.9 Anxiety disorder, unspecified; F32.9 Major depressive disorder, single episode, unspecified; E03.9 Hypothyroidism, unspecified; Z87.442 Personal history of urinary calculi; Z87.440 Personal history of urinary (tract) infections; F17.290 Nicotine dependence, other tobacco product, uncomplicated
CPT/HCPCS: 87081; 87880; 99213; G0463

== ENCOUNTER 2021-04-13 10:26 | Emergency (ER) | payer OTHER, SELFPAY ==
--- NOTE | ~2021-04-13 | XR_ITS ---
EXAMINATION: [id number] INDICATION: Right lower rib pain TECHNIQUE: A frontal view of the chest and 3 views of the right ribs were obtained. COMPARISON: 03/24/2020 FINDINGS: The lungs are free of acute opacities. There is no pleural effusion or pneumothorax. The ca rdiomediastinal silhouette is normal. The visualized bones and soft tissues are unremarkable. No dis placed rib fracture is identified. IMPRESSION: 1. No acute cardiopulmonary abnormality or evidence of displaced rib fracture. Reviewed, dictated and finalized at location B.
[2021-04-13 10:43] VITALS: BP 148/126; PULSE 74; RESP 16; TEMP 36.8; O2SAT 100
--- NOTE | 2021-04-13 10:57 | ED.GENADULT ---
HPI - General Adult General Chief complaint: Fall Stated complaint: Rib Pain History of Present Illness HPI narrative: This is a 26-year-old female that presents with right lower rib pain patient states she fell on Tuesday in the bathtub and hit her ribs. Patient has inform nursing staff that she has tried heat ice and wrapping and she still hurting. Related Data Home Medications Medication Instructions Recorded Confirmed alprazolam [Xanax] 0.25 mg PO DAILY PRN 09/09/19 04/13/21 sertraline 50 mg PO DAILY 05/05/20 04/13/21 Allergies Allergy/AdvReac Type Severity Reaction Status Date / Time poison alana extract Allergy Mild RASH Verified 04/13/21 10:52 Review of Systems Review of Systems: CONSTITUTIONAL: Denies fever, chills, or sweats. EYES: Denies visual changes, redness, or discharge. ENT: Denies rhinorrhea, congestion, sore throat, or otalgia. CARDIOVASCULAR:Denies chest pain, palpitations, or edema. RESPIRATORY: Denies cough or dyspnea. GASTROINTESTINAL: Denies abdominal pain, nausea, vomiting, or diarrhea. GENITOURINARY: Denies dysuria or hematuria. SKIN:[Denies rash or itching. MUSCULOSKELETAL:Denies back pain, joint pain, or myalgia. Complains of right lower rib pain NEUROLOGIC: Denies headache, numbness, or weakness. PSYCHIATRIC:Denies anxiety or depression PMFSH Past Medical History Medical History Anxiety Bloating Depression Fractures History of left wrist, right arm Hypothyroidism Kidney infection Kidney stones Scoliosis Seizures Sexually transmitted disease Upper abdominal pain UTI (urinary tract infection) Surgical History Surgical History History of appendectomy Hx of tonsillectomy Previous section Family History Family History Mother Family history of mental disorder Depression Hypertension Grandparent Cerebrovascular accident Social History Social History Years smoked: 3 Smoking status: Current every day smoker Tobacco type: cigarettes and smokeless tobacco Smoking end date: 08/17/19 Additional smoking assessment comments: STOPPED SMOKING/STARTED VAPING Alcohol intake: current Drinks per week: 2 Alcohol use details: NONE SINCE JUNE 2020 Substance use: never Substance use type: does not use Gender identity (if verbalized by the patient): Female Spiritual care concerns: No Comments At time as signature, I have reviewed and agree with nursing past medical, social, surgical and family history. Please see nursing chart for further information. There is no relevant family history pertinent to the presenting complaint. Exam Narrative: GENERAL:Well-appearing, well-nourished, and in no acute distress. HEAD:Normocephalic, atraumatic. EYES: PERRLA and EOMI. ENT: Nares clear, no rhinorrhea or epistaxis. Mucous membranes moist. NECK: Supple. CHEST: Clear to auscultation. No respiratory distress. HEART: Regular rate and rhythm. Normal peripheral pulses. ABDOMEN: Soft, nontender, nondistended, normal active bowel sounds. EXTREMITIES: Normal range of motion. No edema. SKIN: Warm, dry, no rash. pain with palpation on the right side of rib cage more towards the lower half NEURO: No focal deficits. Alert and oriented x3. Course [employer] Physician Supervision xray show no cardiopulmonary abnormalities Vital Signs Vital signs: Vital Signs Temperature 98.3 F 04/13/21 10:43 Pulse Rate 74 04/13/21 10:43 Respiratory Rate 16 04/13/21 10:43 Blood Pressure 148/126 H 04/13/21 10:43 Pulse Oximetry 100 04/13/21 10:43 Temperature 98.3 F 04/13/21 10:43 Pulse Rate 74 04/13/21 10:43 Respiratory Rate 16 04/13/21 10:43 Blood Pressure 148/126 H 04/13/21 10:43 Pulse Oximetry 100 04/13/21 10:43 Medical Decision Making Vital Sign
--- NOTE | 2021-04-13 12:14 | ED.GENADULT ---
HPI - General Adult General Chief complaint: Fall Stated complaint: Rib Pain History of Present Illness HPI narrative: This is a 26-year-old female comes in complaining of a fall states that she fell in the bathtub now her right side of her ribs have been excruciating painful. Patient denies any other abdominal pain Related Data Home Medications Medication Instructions Recorded Confirmed alprazolam [Xanax] 0.25 mg PO DAILY PRN 09/09/19 04/13/21 sertraline 50 mg PO DAILY 05/05/20 04/13/21 Allergies Allergy/AdvReac Type Severity Reaction Status Date / Time poison alana extract Allergy Mild RASH Verified 04/13/21 10:52 Review of Systems Review of Systems: Right-sided rib pain lower quadrant All systems reviewed & are unremarkable except as noted in HPI and below PMFSH Past Medical History Medical History Anxiety Bloating Depression Fractures History of left wrist, right arm Hypothyroidism Kidney infection Kidney stones Scoliosis Seizures Sexually transmitted disease Upper abdominal pain UTI (urinary tract infection) Surgical History Surgical History History of appendectomy Hx of tonsillectomy Previous section Family History Family History Mother Family history of mental disorder Depression Hypertension Grandparent Cerebrovascular accident Social History Social History Years smoked: 3 Smoking status: Current every day smoker Tobacco type: cigarettes and smokeless tobacco Smoking end date: 08/17/19 Additional smoking assessment comments: STOPPED SMOKING/STARTED VAPING Alcohol intake: current Drinks per week: 2 Alcohol use details: NONE SINCE JUNE 2020 Substance use: never Substance use type: does not use Gender identity (if verbalized by the patient): Female Spiritual care concerns: No Comments At time as signature, I have reviewed and agree with nursing past medical, social, surgical and family history. Please see nursing chart for further information. There is no relevant family history pertinent to the presenting complaint. Exam Narrative: GENERAL:Well-appearing, well-nourished, and in no acute distress. HEAD:Normocephalic. EYES: PERRLA and EOMI. ENT: Nares clear, no rhinorrhea CHEST: Clear to auscultation slightly decreased due to patient not wanting to take a deep breath. No respiratory distress. HEART: Regular rate and rhythm. ABDOMEN: Soft, nontender, nondistended, normal active bowel sounds. EXTREMITIES: Normal range of motion. No edema. SKIN: Warm, dry, no rash. Painful to even the slightest palpitation which makes me think that pain is not from ribs and more likely subcutaneous NEURO: No focal deficits. Alert and oriented x3. Course Course Emergency Course: No cardiopulmonary abnormalities noted Vital Signs Vital signs: Vital Signs Temperature 98.3 F 04/13/21 10:43 Pulse Rate 74 04/13/21 10:43 Respiratory Rate 16 04/13/21 10:43 Blood Pressure 148/126 H 04/13/21 10:43 Pulse Oximetry 100 04/13/21 10:43 Temperature 98.3 F 04/13/21 10:43 Pulse Rate 74 04/13/21 10:43 Respiratory Rate 16 04/13/21 10:43 Blood Pressure 148/126 H 04/13/21 10:43 Pulse Oximetry 100 04/13/21 10:43 Medical Decision Making Vital Signs Vital Signs: Vital Signs Temperature 98.3 F 04/13/21 10:43 Pulse Rate 74 04/13/21 10:43 Respiratory Rate 16 04/13/21 10:43 Blood Pressure 148/126 H 04/13/21 10:43 Pulse Oximetry 100 04/13/21 10:43 Temperature 98.3 F 04/13/21 10:43 Pulse Rate 74 04/13/21 10:43 Respiratory Rate 16 04/13/21 10:43 Blood Pressure 148/126 H 04/13/21 10:43 Pulse Oximetry 100 04/13/21 10:43 Discharge Plan Discharge Clinical Impression: Contusion of rib on right side, Muscle spasm
== END 2021-04-13 12:30 | disposition home or self-care (01) ==
PROVIDERS: Emergency Provider Nurse Practitioner Family; PCP Family Medicine
DX: M62.838 Other muscle spasm (principal); S20.211A Contusion of right front wall of thorax, initial encounter; W19.XXXA Unspecified fall, initial encounter; F41.9 Anxiety disorder, unspecified; F32.A Depression, unspecified; E03.9 Hypothyroidism, unspecified
CPT/HCPCS: 71101; 99213; G0463

== ENCOUNTER 2021-08-19 21:24 | Emergency (ER) | payer OTHER, SELFPAY ==
--- NOTE | ~2021-08-19 | XR_ITS ---
EXAMINATION: XR foot RT min 3V DATE: 08/19/2021 21:41 INDICATION: Stepped on a nail with injury between the fourth and fifth toes. TECHNIQUE: Dorsoplantar, two oblique and lateral views of the right foot were obtained. COMPARISON: None. FINDINGS: Bone alignment is normal. No fracture. Joint spaces are normal. No cortical erosions or periosteal re action. Soft tissues are unremarkable. No soft tissue gas or radiopaque foreign bodies. IMPRESSION: 1. Negative right foot radiographs. Normal bones and no radiopaque foreign bodies. Reviewed, dictated and finalized at location A. FLOOR WORKER IMPRESSION: 1. Negative right foot radiographs. Normal bones and no radiopaque foreign octavio parker
[2021-08-19 21:26] VITALS: BP 145/89; PULSE 100; RESP 17; TEMP 36.6; O2SAT 100
[2021-08-19] MEDS: CEPHALEXIN 500 MG CAPSULE PO (22:02)
[2021-08-19] MEDS: TETANUS,DIPHTHERIA,AC PERTUSSIS ADULT (0.5 ML) BOOSTRIX IM (22:03)
--- NOTE | 2021-08-19 22:08 | ED.LOWEXIN ---
HPI - Extremity Injury (Lower) General Chief Complaint: Extremity Injury, Lower Stated Complaint: stepped on nail Time Seen by Provider: 08/19/21 21:30 Source: patient Mode of arrival: ambulatory Limitations: no limitations History of Present Illness HPI Narrative: This is 26 year old female who presents for evaluation of right 4th toe injury. He states he was walking and accidentally got his right fourth toe stuck on metal of dog kennel. They were able to remove toe from cage. Patient has minimal pain. She denies numbness or tingling. She is not aware of her last tetanus. Related Data Home Medications Medication Instructions Recorded Confirmed alprazolam [Xanax] 0.25 mg PO DAILY PRN 09/09/19 04/13/21 sertraline 50 mg PO DAILY 05/05/20 04/13/21 Allergies Allergy/AdvReac Type Severity Reaction Status Date / Time poison alana extract Allergy Mild RASH Verified 08/19/21 21:26 Review of Systems Review of Systems: All systems reviewed & are unremarkable except as noted in HPI and below PMFSH Past Medical History Medical History Anxiety Bloating Depression Fractures History of left wrist, right arm Hypothyroidism Kidney infection Kidney stones Scoliosis Seizures Sexually transmitted disease Upper abdominal pain UTI (urinary tract infection) Surgical History Surgical History History of appendectomy Hx of tonsillectomy Previous section Family History Family History Mother Family history of mental disorder Depression Hypertension Grandparent Cerebrovascular accident Social History Social History Years smoked: 3 Smoking status: Current every day smoker Tobacco type: cigarettes and smokeless tobacco Smoking end date: 08/17/19 Additional smoking assessment comments: STOPPED SMOKING/STARTED VAPING Alcohol intake: current Drinks per week: 2 Alcohol use details: NONE SINCE JUNE 2020 Substance use: never Substance use type: does not use Gender identity (if verbalized by the patient): Female Spiritual care concerns: No Exam Const: General: no acute distress and alert Orientation/consciousness: patient oriented x3 Eyes: EOM: EOMs intact bilaterally Resp: Effort & Inspection: normal respiratory effort Skin: Other: right 4th toe- on plantar surface right 2 puncture wounds with jagged edges bleeding, control Neuro: General: patient oriented x3, moves all extremities and CN's II-XI intact bilaterally Psych: Mental Status: mental status grossly normal Affect: normal affect Course Reevaluation(s) Reevaluation #1: I Discussed with patient plan to let heal without suture. Wound was irrigated by nurse. will place on antibiotics given likely dirty wire punctured toe. Date: 08/19/21 Time: 22:42 Vital Signs Vital signs: Vital Signs Temperature 97.9 F 08/19/21 21:26 Pulse Rate 100 08/19/21 21:26 Respiratory Rate 17 08/19/21 21:26 Blood Pressure 145/89 H 08/19/21 21:26 Pulse Oximetry 100 08/19/21 21:26 Temperature 97.9 F 08/19/21 21:26 Pulse Rate 100 08/19/21 21:26 Respiratory Rate 17 08/19/21 21:26 Blood Pressure 145/89 H 08/19/21 21:26 Pulse Oximetry 100 08/19/21 21:26 MDM - Extremity Injury (Lower) Imaging Data Radiologist's impression: ITS Impressions Foot X-Ray 08/19/21 21:49 IMPRESSION: 1. Negative right foot radiographs. Normal bones and no radiopaque foreign bodies. Discharge Plan Discharge Clinical Impression: Puncture wound of toe, right Patient Disposition: Home, Self-Care Condition: Stable Instructions: Antibiotic Form, Acute Wounds (ED), Puncture Wound in the Foot (ED) Additional Instructions: It is important that you clean your wound daily. Watch for signs of
== END 2021-08-19 22:51 | disposition home or self-care (01) ==
PROVIDERS: Emergency Provider General Practice; PCP Family Medicine
DX: S91.134A Puncture wound without foreign body of right lesser toe(s) without damage to nail, initial encounter (principal); F41.9 Anxiety disorder, unspecified; F32.9 Major depressive disorder, single episode, unspecified; E03.9 Hypothyroidism, unspecified; Z87.440 Personal history of urinary (tract) infections; Z87.442 Personal history of urinary calculi; G40.909 Epilepsy, unspecified, not intractable, without status epilepticus; Z23 Encounter for immunization; W26.8XXA Contact with other sharp object(s), not elsewhere classified, initial encounter
CPT/HCPCS: 73630; 90471; 90715; 99283; A9270

== ENCOUNTER 2021-09-15 08:57 | Emergency (ER) | payer OTHER, SELFPAY ==
--- NOTE | 2021-09-15 09:03 | ED.ABDPAIN ---
HPI - Abdominal Pain General Chief Complaint: Abdominal Pain Stated Complaint: abd pain Time Seen by Provider: 09/15/21 09:03 Source: patient, RN notes reviewed and old records reviewed Mode of arrival: ambulatory Limitations: no limitations History of Present Illness HPI narrative: 26-year-old female presents to the [facility] with upper abdominal pain that she describes as sharp that woke her up out of her sleep at 2 AM. Also complaining of nausea and vomiting. No treatment prior to arrival. MD elicited complaint: abdominal pain Related Data Home Medications Medication Instructions Recorded Confirmed alprazolam [Xanax] 0.25 mg PO DAILY PRN 09/09/19 04/13/21 sertraline 50 mg PO DAILY 05/05/20 04/13/21 Allergies Allergy/AdvReac Type Severity Reaction Status Date / Time poison alana extract Allergy Mild RASH Verified 09/15/21 09:05 Review of Systems Review of Systems: All systems reviewed & are unremarkable except as noted in HPI and below Constitutional: Constitutional: Reports no additional constitutional complaints, Denies chills and Denies fever(s) Eyes: Eyes: Reports no additional eye complaints ENT: Reports system reviewed and no additional complaints, except as documented and Denies sore throat Cardiovascular: Cardiovascular: Reports no additional cardiovascular complaints and Denies chest pain Respiratory: Respiratory: Reports no additional respiratory complaints, Denies cough and Denies dyspnea Gastrointestinal: Gastrointestinal: Reports as per HPI, Reports abdominal pain, Reports nausea and Reports vomiting Musculoskeletal: Musculoskeletal: Reports no additional musculoskeletal complaints Integumentary/Breasts: Skin/Breast: Reports system reviewed and no additional complaints, except as docu Neurologic: Reports system reviewed and no additional complaints, except as documented Psychiatric: Psychiatric: Reports no additional psychiatric complaints Allergic/Immunologic: Allergic/Immunologic: Reports no additional allergic/immunologic complaints [facility] Past Medical History Medical History Anxiety Bloating Depression Fractures History of left wrist, right arm Hypothyroidism Kidney infection Kidney stones Scoliosis Seizures Sexually transmitted disease Upper abdominal pain UTI (urinary tract infection) Surgical History Surgical History History of appendectomy Hx of tonsillectomy Previous section Family History Family History Mother Family history of mental disorder Depression Hypertension Grandparent Cerebrovascular accident Social History Social History Years smoked: 3 Smoking status: Current every day smoker Tobacco type: cigarettes and smokeless tobacco Smoking end date: 08/17/19 Additional smoking assessment comments: STOPPED SMOKING/STARTED VAPING Alcohol intake: current Drinks per week: 2 Alcohol use details: NONE SINCE JUNE 2020 Substance use: never Substance use type: does not use Gender identity (if verbalized by the patient): Female Spiritual care concerns: No Comments At the time of my signature, I reviewed and agree with the nursing past medical, surgical, social, and family history. There is no relevant family history pertinent to the patient complaint. Exam Const: General: no acute distress, alert and ill appearing acutely (mild) Nutritional Appearance: well nourished Orientation/consciousness: patient oriented x3 Limitations: no limitations HENMT: Head: normal to inspection Ears: external ears normal Eyes: Pupils: Equal, round and reactive pupils present Neck: Neck: normal visual inspection, no lymphadenopathy and no meningeal signs Chest: Chest palpation & inspection: normal inspection of the chest
[2021-09-15 09:04] VITALS: BP 145/109; PULSE 122; RESP 16; TEMP 36.5; O2SAT 99
[2021-09-15 09:08] VITALS: BP 145/109; PULSE 122; RESP 16; TEMP 36.5; O2SAT 99
== END 2021-09-15 09:10 | disposition short-term general hospital (02) ==
PROVIDERS: Emergency Provider Nurse Practitioner; PCP Family Medicine
DX: R10.11 Right upper quadrant pain (principal); F17.290 Nicotine dependence, other tobacco product, uncomplicated; E03.9 Hypothyroidism, unspecified; M41.9 Scoliosis, unspecified; F41.9 Anxiety disorder, unspecified; F32.A Depression, unspecified
CPT/HCPCS: 99212; G0463

== ENCOUNTER 2021-09-15 09:30 | Emergency (ER) | payer OTHER, SELFPAY ==
--- NOTE | ~2021-09-15 | CT_ITS ---
EXAMINATION: CT abdomen pelvis w con EXAM DATE: 09/15/2021 11:47 INDICATION: US Normal, Mid abd Pain Increase WBC. TECHNIQUE: Spiral CT of the abdomen and pelvis was performed following intravenous injection of 100 m L Omnipaque 350. Axial, coronal and sagittal images of the abdomen and pelvis were reviewed. The do se-length product (DLP) for this examination was 362.87 mGy-cm. The exposure was tailored according to patient size (auto mA exposure control), and iterative reconstruction (ASIR) was used as additiona l dose reduction technique. Comparison is made to prior examination from 07/16/2020. FINDINGS: The liver, spleen, adrenal glands and pancreas are unremarkable. Gallbladder is unremarkab le. No biliary obstruction. Portal and splenic veins are patent. Kidneys enhance symmetrically. T here is no hydronephrosis. The uterus is anteverted and morphologically normal. The ovaries are wit hin normal size limits. Small amount of physiologic free pelvic fluid. The bladder is unremarkable. There is no retroperitoneal or pelvic lymphadenopathy. The appendix is not positively visualized. There is no pericecal inflammatory change to suggest appe ndicitis. The stomach and small bowel are unremarkable. There is expected amount of colonic stool. No free intraperitoneal gas. The heart is normal in size. There are no pericardial or pleural e ffusions. The lung bases are unremarkable. There are no osteoblastic or osteolytic lesions identifi ed. There is mild thoracolumbar levoscoliosis. IMPRESSION: Small amount of free pelvic fluid, likely from recently ruptured physiologic or hemorrhag ic cyst. No acute findings. Reviewed, dictated and finalized at location A. IMPRESSION: Small amount of free pelvic fluid, likely from recently ruptured ph ysiologic or hemorrhagic cyst. No acute findings.
--- NOTE | ~2021-09-15 | US_ITS ---
EXAMINATION: US abdomen limited DATE: 09/15/2021 10:24 INDICATION: Right upper quadrant abdominal pain. TECHNIQUE: Multiple grayscale and Doppler ultrasound images of the abdomen were obtained. COMPARISON: CT abdomen and pelvis 07/16/2020 FINDINGS: The visualized portions of the head, body, and tail of the pancreas are normal. The liver i s normal without focal lesion. No liver surface nodularity. There is normal flow in main portal vein. The gallbladder is normal in size. No gallstones or gallbladder wall thickening. There was no sonogr aphic Hurst sign. The common duct is normal and measures 3 mm. IMPRESSION: 1. Normal right upper quadrant ultrasound. Reviewed, dictated and finalized at location A.
[2021-09-15 09:44] VITALS: BP 128/84; PULSE 87; RESP 15; TEMP 36.6; O2SAT 100
[2021-09-15 10:01] LABS: Basophils Absolute Auto 0.1 K/mm3 (0.0-0.1); Basophils Percent Auto 0.4 % (0.2-1.2); Eosinophils Absolute Auto 0.1 K/mm3 (0-0.3); Eosinophils Percent Auto 0.8 % (0-4.4); Hematocrit 45.9 % (37.0-47.0); Hemoglobin 15.4 g/dL (12.0-15.0); Immature Granulocyte Absolute 0.05 K/mm3 (0.00-0.031); Immature Granulocyte Percent A 0.4 % (0-0.5); Lymphocytes Absolute Auto 0.51 K/mm3 (0.9-3.2); Lymphocytes Percent Auto 3.8 % (18.3-44.2); Mean Corpuscular HGB Conc 33.6 g/dl (32-36); Mean Corpuscular Volume 89.3 fl (80-100); Mean Platelet Volume 10.3 fl (7.4-10.4); Monocytes Absolute Auto 0.5 K/mm3 (0.1-0.6); Monocytes Percent Auto 4.1 % (2.6-8.5); Neutrophils Percent Auto 90.5 % (45.5-73.1); Platelet Count Result 247 k/mm3 (150-375); Red Blood Count 5.14 M/mm3 (4.2-5.4); Red Cell Distribution Width 12.1 % (11.5-14.5); White Blood Count 13.3 K/mm3 (4.5-10.0)
[2021-09-15 10:03] LABS: Add Urine Microscopic? NO; Appearance Urine Clear (Clear); Bilirubin Urine Negative (Negative); Blood Urine Negative (Negative); Color Urine Yellow (Yellow); Glucose Urine UA Negative (Negative); Ketones Urine Negative (Negative); Leukocyte Esterase Ur Negative LEU/UL (Negative); Nitrate Urine Negative (Negative); Protein Urine Negative (Negative); Specific Grav Ur 1.016 (1.001-1.035); Urobilinogen Urine Negative mg/dL (<2.0)
[2021-09-15 10:12] LABS: Alanine Aminotransferase 23 U/L (4-35); Alkaline Phosphatase 70 U/L (38-126); Anion Gap 9 mmol/L (8-16); Aspartate Amino Transferase 37 U/L (14-36); Bilirubin,Total 1.5 mg/dL (0.2-1.3); Blood Urea Nitrogen 16 mg/dL (7-17); Carbon Dioxide 24 mmol/L (22-30); Chloride 102 mmol/L (98-107); Estimated CRCL calculation 111 ml/min; Estimated Glomerular Filt Rate > 60; Glucose 105 mg/dL (65-110); Lipase 94 U/L (23-300); Potassium 3.8 mmol/L (3.4-5.0); Sodium 135 mmol/L (137-145)
--- NOTE | 2021-09-15 10:15 | PC.NURSE ---
Pt to u/s at this time.
[2021-09-15] MEDS: MORPHINE SULFATE (*CRX) 2 MG/ML INJ IV PUSH (10:29)
[2021-09-15] MEDS: ONDANSETRON INJ 4 MG/2 ML VIAL IV PUSH (10:29)
[2021-09-15] MEDS: SODIUM CHLORIDE 0.9% IV 1,000 ML 999 ML IV CONT (10:29)
[2021-09-15 11:28] VITALS: BP 123/69; PULSE 79; RESP 15; O2SAT 100
--- NOTE | 2021-09-15 11:33 | ED.ABDPAIN ---
HPI - Abdominal Pain General Chief Complaint: Abdominal Pain Stated Complaint: abd pain Time Seen by Provider: 09/15/21 09:37 Source: patient Mode of arrival: ambulatory Limitations: no limitations History of Present Illness HPI narrative: 26-year-old female presents emergency room secondary mid abdominal pain. States she went to bed in her normal state of health last night. She woke up with the abdominal pain with some nausea vomiting. She had some loose stools. No one else at home has been sick. He denies any history of any chronic or ongoing abdominal issues. Related Data Home Medications Medication Instructions Recorded Confirmed alprazolam [Xanax] 0.25 mg PO DAILY PRN 09/09/19 04/13/21 sertraline 50 mg PO DAILY 05/05/20 04/13/21 Allergies Allergy/AdvReac Type Severity Reaction Status Date / Time poison alana extract Allergy Mild RASH Verified 09/15/21 09:05 Review of Systems Review of Systems: CONSTITUTIONAL: Denies fever, chills, or sweats. EYES: Denies visual changes, redness, or discharge. ENT: Denies rhinorrhea, congestion, sore throat, or otalgia. CARDIOVASCULAR: Denies chest pain, palpitations, or edema. RESPIRATORY: Denies cough or dyspnea. GASTROINTESTINAL: Having mid abdominal pain with associated nausea vomiting mild diarrhea. GENITOURINARY: Denies dysuria or hematuria. SKIN: Denies rash or itching. MUSCULOSKELETAL: Denies back pain, joint pain, or myalgia. NEUROLOGIC: Denies headache, numbness, or weakness. PSYCHIATRIC: Denies anxiety or depression. [facility] Past Medical History Medical History Anxiety Bloating Depression Fractures History of left wrist, right arm Hypothyroidism Kidney infection Kidney stones Scoliosis Seizures Sexually transmitted disease Upper abdominal pain UTI (urinary tract infection) Surgical History Surgical History History of appendectomy Hx of tonsillectomy Previous section Family History Family History Mother Family history of mental disorder Depression Hypertension Grandparent Cerebrovascular accident Social History Social History Years smoked: 3 Smoking status: Current every day smoker Tobacco type: cigarettes and smokeless tobacco Smoking end date: 08/17/19 Additional smoking assessment comments: STOPPED SMOKING/STARTED VAPING Alcohol intake: current Drinks per week: 2 Alcohol use details: NONE SINCE JUNE 2020 Substance use: never Substance use type: does not use Gender identity (if verbalized by the patient): Female Spiritual care concerns: No Exam Narrative: APPEARANCE: Well appearing, no pain or distress, well-nourished. Head normocephalic and atraumatic. EYES: PERRLA/EOMI, conjunctivae very clear. NOSE: Normal with no drainage EARS:TMS clear Max Dooley, with good light reflex. THROAT: Pharynx clear, no exudate. NECK: Supple. No adenopathy, no masses. RESPIRATORY: Airway patent, respirations nonlabored. Clear to auscultation bilaterally, no rales, rhonchi, wheezing. CARDIOVASCULAR: Regular rate and rhythm without murmurs, rubs, or gallops. ABDOMINAL: Soft with some mild tenderness to palpation in the mid abdominal region. No rebound rigidity or guarding. No masses. Musculoskeletal: Moves all extremities. Strength/ROM intact, No edema, No calf tenderness. NEURO: Alert. Cranial nerves II through XII intact. Normal gait. Good coordination. Nonfocal examination. SKIN:: Warm, dry. Normal Color PSYCHIATRIC: Normal affect/mood, normal interaction Course Vital Signs Vital signs: Vital Signs Temperature 97.9 F 09/15/21 09:44 Pulse Rate 87 09/15/21 09:44 Respiratory Rate 15 09/15/21 09:44 Blood Pressure 128/84 09/15/21 09:44 Pulse Oximetry 100 09/15/21 09:44 Temperatu
[2021-09-15 12:39] VITALS: BP 121/80; PULSE 77; RESP 15; O2SAT 100
[2021-09-15 13:54] VITALS: BP 123/74; PULSE 84; RESP 16; TEMP 36.6; O2SAT 99
== END 2021-09-15 14:00 | disposition home or self-care (01) ==
PROVIDERS: Emergency Provider Emergency Medicine; PCP Family Medicine
DX: K29.70 Gastritis, unspecified, without bleeding (principal); F41.9 Anxiety disorder, unspecified; F32.A Depression, unspecified; E03.9 Hypothyroidism, unspecified; F17.210 Nicotine dependence, cigarettes, uncomplicated; R56.9 Unspecified convulsions; Z87.442 Personal history of urinary calculi; Z87.440 Personal history of urinary (tract) infections; Z90.89 Acquired absence of other organs
CPT/HCPCS: 36415; 74177; 76705; 80053; 81003; 81025; 83690; 85025; 96361; 96374; 96375; 99212; 99284; G0463; J2270; J2405; J7030; Q9967

== ENCOUNTER 2022-01-05 08:11 | Outpatient (CLI) | payer OTHER, SELFPAY ==
--- NOTE | ~2022-01-05 | NM_ITS ---
EXAM: NM gastric emptying study DATE: 01/05/2022 13:29 CDT INDICATION: Nausea and vomiting TECHNIQUE: A gastric emptying study was performed using the methodology of Kayley RAMOS, et al. J Nucl Med 2007; 48:568-572. The patient was given a meal consisting of 2 scrambled eggs labeled with 957 m Ci Tc-99m sulfur colloid, 2 slices of toast, two packages of jam, and approximately 120 mL of water. Simultaneous anterior and posterior 1-min images of the abdomen were obtained with the patient supine at multiple time points over a total period of 4 hours. The geometric mean of anterior and posterior views was determined, and the percentage retention was calculated for each time point. COMPARISON: CT dated 09/15/2021. FINDINGS: Gastric retention of the radiotracer-labeled meal was 43%, 14%, and 5% at the 1-hour, 2-ho ur, and 4-hour time points, respectively. With this technique, apparent rapid gastric emptying is sug gested by <30% gastric retention at 1 hour. Delayed gastric emptying is defined by gastric retention of >90% at 1 hour, >60% retention at 2 hours, or >10% retention at 4 hours. IMPRESSION: 1. Normal gastric emptying. Reviewed, dictated and finalized at location A. IMPRESSION: 1. Normal gastric emptying.
== END 2022-01-05 08:12 | disposition home or self-care (01) ==
PROVIDERS: PCP Family Medicine; Visit Provider Nurse Practitioner Family
DX: R11.2 Nausea with vomiting, unspecified (principal)
CPT/HCPCS: 78264; A9541

== ENCOUNTER 2022-03-30 18:05 | Emergency (ER) | payer OTHER, SELFPAY ==
--- NOTE | ~2022-03-30 | XR_ITS ---
EXAM: XR ankle RT min 3V DATE: 03/30/2022 18:34 HISTORY: right ankle pain, injury TODAY, LATERAL SIDED PAIN . COMPARISON: None available. FINDINGS: Normal mineralization. No fracture or dislocation. No lytic or blastic lesion. Mild medial tilt of the talus with mild lateral tibiotalar joint space widening. Prominent os trigonum. No erosi on or periosteal change. Soft tissues within normal limits. IMPRESSION: Mild lateral tibiotalar joint space widening may reflect the presence of lateral ligament ous injury. No acute osseous finding in the right ankle. Reviewed, dictated and finalized at location K. IMPRESSION: Mild lateral tibiotalar joint space widening may reflect the presen ce of lateral ligamentous injury. No acute osseous finding in the right ankle.
[2022-03-30 18:11] VITALS: BP 143/110; PULSE 98; RESP 20; TEMP 36.4; O2SAT 98
--- NOTE | 2022-03-30 18:21 | ED.LOWEXIN ---
HPI - Extremity Injury (Lower) General Chief Complaint: Extremity Injury, Lower <Bridgette Welch PA-C - Last Filed: 03/30/22 18:45> Stated Complaint: right ankle injury with swelling <ENRRIQUE Kohler Last Filed: 03/30/22 18:45> Time Seen by Provider: 03/30/22 18:17 <Bridgette Welch PA-C - Last Filed: 03/30/22 18:45> Source: patient <ENRRIQUE Kohler Last Filed: 03/30/22 18:45> Mode of arrival: wheelchair <ENRRIQUE Kohler Last Filed: 03/30/22 18:45> Limitations: no limitations <ENRRIQUE Kohler Last Filed: 03/30/22 18:45> History of Present Illness HPI Narrative: This is a 27-year-old female that presents emergency department after right ankle injury just prior to arrival. Reports she tripped over her dog and twisted her right ankle. Reports pain and swelling about the right lateral ankle. Reports decreased range of motion due to pain. Denies numbness. <Bridgette Welch PA-C - Last Filed: 03/30/22 18:45> Related Data Home Medications: Home Medications Medication Instructions Recorded Confirmed alprazolam 0.25 mg tablet (Xanax) 0.25 mg PO DAILY PRN Anxiety 09/09/19 12/28/21 sertraline 50 mg tablet 50 mg PO DAILY 05/05/20 04/13/21 <ENRRIQUE Kohler Last Filed: 03/30/22 18:45> Allergies/Adverse Reactions: Allergies Allergy/AdvReac Type Severity Reaction Status Date / Time poison alana extract Allergy Mild RASH Verified 12/28/21 14:30 <ENRRIQUE Kohler Last Filed: 03/30/22 18:45> Review of Systems Review of Systems: CONSTITUTIONAL: Denies fever MUSCULOSKELETAL: Reports joint pain, and myalgia. NEUROLOGIC: Denies numbness <ENRRIQUE Kohler Last Filed: 03/30/22 18:45> All systems reviewed & are unremarkable except as noted in HPI and below <Bridgette Welch PA-C - Last Filed: 03/30/22 18:45> [facility] Past Medical History Medical History: Medical History (Updated 03/30/22 @ 18:43 by Bridgette Welch PA-C) Anxiety Bloating Depression Diarrhea Fractures History of left wrist, right arm Hypothyroidism Kidney infection Kidney stones Nausea and vomiting Scoliosis Seizures Sexually transmitted disease Upper abdominal pain UTI (urinary tract infection) <Bridgette Welch PA-C - Last Filed: 03/30/22 18:45> Surgical History Surgical History: Surgical History History of appendectomy Hx of tonsillectomy Previous section <Bridgette Welch PA-C - Last Filed: 03/30/22 18:45> Family History Family History: Family History Mother Family history of mental disorder Depression Hypertension Grandparent Cerebrovascular accident <Bridgette Welch PA-C - Last Filed: 03/30/22 18:45> Social History Social History: Social History Years smoked: 3 Smoking status: Current every day smoker Tobacco type: cigarettes and smokeless tobacco Smoking end date: 08/17/19 Additional smoking assessment comments: STOPPED SMOKING/STARTED VAPING Alcohol intake: current Drinks per week: 2 Alcohol use details: NONE SINCE JUNE 2020 Substance use: never Substance use type: does not use Gender identity (if verbalized by the patient): Female Spiritual care concerns: No <Bridgette Welch PA-C - Last Filed: 03/30/22 18:45> Exam Narrative: GENERAL: Well-appearing, well-nourished, and in no acute distress. HEAD: Normocephalic, atraumatic. EYES: EOMI. EXTREMITIES: Decreased active range of motion of the right ankle due to pain. No obvious deformity. Normal DP pulse. Normal sensation. Mild edema noted over the right lateral malleoli SKIN: Warm, dry, no rash. NEURO: No focal deficits. Alert and oriented x3. PSYCH: Normal mood and affect <Bridgette Welch PA-C - Last Filed: 03/30/22 18:45> Course CONGRESSIONAL AIDE/PA Physician Mylene
[2022-03-30] MEDS: IBUPROFEN 600 MG TABLET PO (18:36)
[2022-03-30 19:00] VITALS: TEMP 36.4
== END 2022-03-30 19:04 | disposition home or self-care (01) ==
PROVIDERS: Emergency Provider Preventive Medicine Aerospace Medicine; PCP Family Medicine
DX: S93.401A Sprain of unspecified ligament of right ankle, initial encounter (principal); W01.0XXA Fall on same level from slipping, tripping and stumbling without subsequent striking against object, initial encounter; F41.9 Anxiety disorder, unspecified; F32.A Depression, unspecified; F17.290 Nicotine dependence, other tobacco product, uncomplicated
CPT/HCPCS: 73610; 99283; A9270

== ENCOUNTER 2022-12-18 13:05 | Emergency (ER) | payer OTHER, SELFPAY ==
--- NOTE | 2022-12-18 13:13 | ED.URI ---
HPI - URI/Sore Throat General Chief Complaint: Upper Respiratory Infection Stated Complaint: Sore Throat/Bodyaches Time Seen by Provider: 12/18/22 13:13 Source: patient Mode of arrival: ambulatory Limitations: no limitations History of Present Illness HPI Narrative: Patient is a 27-year-old female who presents with sore throat for 2 days. Patient also having intermittent fever and body aches. Denies any congestion, ear pain, cough, shortness of breath, nausea, vomiting, diarrhea. Patient states she does have seasonal allergies but has not been taking anything for symptoms. Patient has used NyQuil/DayQuil, throat spray and ibuprofen with no relief. Related Data Home Medications Medication Instructions Recorded Confirmed alprazolam 0.25 mg tablet (Xanax) 0.5 mg PO DAILY PRN Anxiety 09/09/19 12/18/22 sertraline 50 mg tablet 150 mg PO DAILY 05/05/20 12/18/22 Allergies Allergy/AdvReac Type Severity Reaction Status Date / Time poison alana extract Allergy Mild RASH Verified 12/18/22 13:48 Review of Systems Review of Systems: All systems reviewed & are unremarkable except as noted in HPI and below Constitutional: Constitutional: Denies body ache(s), Denies chills, Denies fatigue, Denies fever(s), Denies headache(s), Denies malaise and Denies weakness Eyes: Eyes: Denies blurry vision, Denies itchy eyes and Denies loss of vision ENT: Denies otalgia, Denies headache(s), Denies nasal congestion, Denies sinus pain and Reports sore throat Cardiovascular: Cardiovascular: Denies chest pain, Denies irregular heart rhythm and Denies dyspnea Respiratory: Respiratory: Reports cough and Denies dyspnea Gastrointestinal: Gastrointestinal: Denies abdominal pain, Denies diarrhea, Denies nausea and Denies vomiting Musculoskeletal: Musculoskeletal: Denies back pain, Denies myalgias and Denies arthralgias Integumentary/Breasts: Skin/Breast: Denies pruritus and Denies rash Neurologic: Denies headache(s), Denies loss of vision and Denies weakness Psychiatric: Psychiatric: Reports no additional psychiatric complaints Endocrine: Endocrine: Denies fatigue Allergic/Immunologic: Allergic/Immunologic: Denies itchy eyes PMFSH Past Medical History Medical History (Updated 12/18/22 @ 14:40 by Jaimee Harrell APRN) Anxiety Bloating Depression Diarrhea Fractures History of left wrist, right arm Hypothyroidism Kidney infection Kidney stones Nausea and vomiting Scoliosis Seizures Sexually transmitted disease Upper abdominal pain UTI (urinary tract infection) Surgical History Surgical History History of appendectomy Hx of tonsillectomy Previous section Family History Family History Mother Family history of mental disorder Depression Hypertension Grandparent Cerebrovascular accident Social History Social History Years smoked: 3 Smoking status: Current every day smoker Tobacco type: cigarettes and smokeless tobacco Smoking end date: 08/17/19 Additional smoking assessment comments: STOPPED SMOKING/STARTED VAPING Alcohol intake: current Drinks per week: 2 Alcohol use details: NONE SINCE JUNE 2020 Substance use: never Substance use type: does not use Living arrangements: alone Gender identity (if verbalized by the patient): Female Spiritual care concerns: No Comments At time of signature, agree with nursing past medical, surgical, social and family history. There is no relevant family history pertinent to the presenting complaint. Exam Const: General: cooperative, healthy appearing, comfortable, no acute distress and well nourished Nutritional Appearance: well nourished Orientation/consciousness: patient oriented x3 Limitations: no limitations HENMT: Head: normal to inspection, normocephalic and atraumatic Ears: hearing yun
[2022-12-18 13:38] VITALS: BP 145/99; PULSE 79; RESP 16; TEMP 36.6; O2SAT 100
[2022-12-18 14:45] VITALS: BP 148/62
== END 2022-12-18 14:45 | disposition home or self-care (01) ==
PROVIDERS: Emergency Provider Nurse Practitioner Family; PCP Family Medicine
DX: J02.9 Acute pharyngitis, unspecified (principal); Z20.822 Contact with and (suspected) exposure to COVID-19; F17.290 Nicotine dependence, other tobacco product, uncomplicated; E03.9 Hypothyroidism, unspecified; M41.9 Scoliosis, unspecified; F41.9 Anxiety disorder, unspecified; F32.A Depression, unspecified
CPT/HCPCS: 87081; 87426; 87880; 99213; C9803; G0463

== ENCOUNTER 2023-01-13 12:17 | Emergency (ER) | payer OTHER, SELFPAY ==
[2023-01-13 12:41] VITALS: BP 131/79; PULSE 100; RESP 16; TEMP 36.8; O2SAT 100
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
== END 2023-01-13 13:20 | disposition home or self-care (01) ==
PROVIDERS: Emergency Provider Nurse Practitioner Family; PCP Family Medicine
DX: H10.9 Unspecified conjunctivitis (principal); F17.290 Nicotine dependence, other tobacco product, uncomplicated; E03.9 Hypothyroidism, unspecified; F41.9 Anxiety disorder, unspecified; F32.A Depression, unspecified; M41.9 Scoliosis, unspecified
CPT/HCPCS: 99213; G0463

== ENCOUNTER 2023-06-14 08:44 | Emergency (ER) | payer OTHER, SELFPAY ==
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
[2023-06-14 08:59] VITALS: BP 159/102; PULSE 66; RESP 16; TEMP 36.7; O2SAT 99
[2023-06-14 09:10] VITALS: BP 140/98
== END 2023-06-14 09:22 | disposition home or self-care (01) ==
PROVIDERS: Emergency Provider Nurse Practitioner Family; PCP Family Medicine
DX: N30.01 Acute cystitis with hematuria (principal); F41.9 Anxiety disorder, unspecified; E03.9 Hypothyroidism, unspecified
CPT/HCPCS: 81003; 87077; 87086; 87186; 99213; G0463

== ENCOUNTER 2024-05-22 09:50 | Emergency (ER) | payer OTHER, SELFPAY ==
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
[2024-05-22 10:07] VITALS: BP 156/109; PULSE 66; RESP 20; TEMP 36.3; O2SAT 100
[2024-05-22 11:44] LABS: Basophils Percent Auto 0.7 % (0.2-1.2); Eosinophils Absolute Auto 0.2 K/mm3 (0-0.3); Eosinophils Percent Auto 4.4 % (0-4.4); Hematocrit 39.5 % (37.0-47.0); Hemoglobin 12.7 g/dL (12.0-15.0); Immature Granulocyte Absolute 0.01 K/mm3 (0.00-0.031); Immature Granulocyte Percent A 0.2 % (0-0.5); Lymphocytes Absolute Auto 1.22 K/mm3 (0.9-3.2); Lymphocytes Percent Auto 27.1 % (18.3-44.2); Mean Corpuscular HGB Conc 32.2 g/dl (32-36); Mean Corpuscular Hemoglobin 29.4 pg (26-34); Mean Corpuscular Volume 91.4 fl (80-100); Mean Platelet Volume 10.5 fl (7.4-10.4); Monocytes Absolute Auto 0.5 K/mm3 (0.1-0.6); Monocytes Percent Auto 11.6 % (2.6-8.5); Neutrophils Absolute Auto 2.5 K/mm3 (1.3-6.7); Platelet Count Result 203 k/mm3 (150-375); Red Blood Count 4.32 M/mm3 (4.2-5.4); Red Cell Distribution Width 12.9 % (11.5-14.5); White Blood Count 4.5 K/mm3 (4.5-10.0)
[2024-05-22 11:49] LABS: BEDSIDEPREGUCG Negative (Negative)
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
[2024-05-22 11:57] LABS: Alanine Aminotransferase 20 U/L (6-35); Albumin Level 4.3 g/dL (3.5-5.1); Alkaline Phosphatase 48 U/L (38-126); Anion Gap 3 mmol/L (4-12); Aspartate Amino Transferase 26 U/L (14-36); Bilirubin,Total 0.8 mg/dL (0.2-1.3); Blood Urea Nitrogen 10 mg/dL (7-17); Calcium 9.1 mg/dL (8.4-10.2); Carbon Dioxide 28 mmol/L (22-30); Chloride 103 mmol/L (98-107); Estimated CRCL calculation 146 ml/min; Estimated Glomerular Filt Rate > 60; Glucose 93 mg/dL (65-110); Potassium 4.4 mmol/L (3.4-5.0); Sodium 134 mmol/L (137-145)
[2024-05-22] MEDS: ACETAMINOPHEN 500 MG TABLET 1000 MG PO (12:12)
[2024-05-22] MEDS: SODIUM CHLORIDE 0.9% IV 1,000 ML 999 ML IV CONT (12:13)
[2024-05-22] MEDS: METOCLOPRAMIDE HCL INJ 10 MG/2 ML VIAL IV PUSH (12:13)
[2024-05-22] MEDS: diphenhydrAMINE HCl INJ 50 MG/ML VIAL 25 MG IV PUSH (12:13)
[2024-05-22 14:06] VITALS: BP 133/92; PULSE 70; RESP 18; TEMP 36.5; O2SAT 99
== END 2024-05-22 14:08 | disposition home or self-care (01) ==
PROVIDERS: Emergency Provider Physician Assistant; PCP Family Medicine
DX: S09.90XA Unspecified injury of head, initial encounter (principal); Y04.2XXA Assault by strike against or bumped into by another person, initial encounter; F41.8 Other specified anxiety disorders; E03.9 Hypothyroidism, unspecified; F17.290 Nicotine dependence, other tobacco product, uncomplicated
CPT/HCPCS: 36415; 70496; 70498; 80053; 81025; 85025; 96361; 96374; 96375; 99284; A9270; J1200; J2765; J7030; Q9967

== ENCOUNTER 2025-01-01 09:24 | Emergency (ER) | payer OTHER, SELFPAY ==
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
[2025-01-01 09:31] VITALS: BP 146/99; PULSE 76; RESP 14; TEMP 36.9; O2SAT 100
== END 2025-01-01 09:49 | disposition home or self-care (01) ==
PROVIDERS: Emergency Provider Nurse Practitioner Family; PCP Family Medicine
DX: B02.9 Zoster without complications (principal); F17.290 Nicotine dependence, other tobacco product, uncomplicated; E03.9 Hypothyroidism, unspecified; F41.9 Anxiety disorder, unspecified; F32.A Depression, unspecified
CPT/HCPCS: 99213; G0463

== ENCOUNTER 2025-04-17 08:21 | Emergency (ER) | payer OTHER, SELFPAY ==
[2025-04-17 08:29] VITALS: BP 159/98; PULSE 74; RESP 20; TEMP 36.4; O2SAT 100
[2025-04-17 08:41] LABS: EDUAAPPEAR Cloudy; EDUABILI Negative (Negative); EDUABLOOD 2+ (Negative); EDUACOLOR1 Yellow; EDUAGLUCOSE Negative (Negative); EDUAKETONE Negative (Negative); EDUALEUKO 3+ (Negative); EDUANITRATE Positive (Negative); EDUAPH 6.0; EDUAPROTEIN 1+ (Negative); EDUASPGRAVITY 1.015; EDUAUROBILI 0.2
--- NOTE | 2025-04-17 08:49 | ED.FEMALEGU ---
HPI - Female Genitourinary General Chief complaint: Urogenital-Female Stated complaint: urinary irritation Time Seen by Provider: 04/17/25 08:50 Source: patient Mode of arrival: ambulatory Limitations: no limitations History of Present Illness HPI Narrative: 30-year-old female presents with complaint of urinary frequency, dysuria, right-sided low back pain for 2 days. Reports that she has been clammy. Afebrile. No nausea vomiting. No concern for . Concern for UTI. All systems reviewed and negative except as noted above. Related Data Home Medications ?Medication ?Instructions ?Recorded ?Confirmed ?Last Taken ?Type alprazolam 0.25 mg tablet (Xanax) 0.5 mg PO DAILY PRN Anxiety 09/09/19 06/14/23 08/28/20 History 0.25 mg sertraline 50 mg tablet 150 mg PO DAILY 05/05/20 06/14/23 08/27/20 History Allergies Allergy/AdvReac Type Severity Reaction Status Date / Time poison alana extract Allergy Mild RASH Verified 05/22/24 09:51 [facility] Past Medical History Medical History Anxiety Bloating Depression Diarrhea Fractures History of left wrist, right arm Hypothyroidism Kidney infection Kidney stones Nausea and vomiting Scoliosis Seizures Sexually transmitted disease Upper abdominal pain UTI (urinary tract infection) Surgical History Surgical History History of appendectomy Hx of tonsillectomy Previous section Family History Family History Mother Family history of mental disorder Depression Hypertension Grandparent Cerebrovascular accident Social History Social History Years smoked: 3 Tobacco type: cigarettes and smokeless tobacco Smoking end date: 08/17/19 Additional smoking assessment comments: STOPPED SMOKING/STARTED VAPING Alcohol intake: current Drinks per week: 2 Alcohol use details: NONE SINCE JUNE 2020 Substance use: never Substance use type: does not use Lack of Transportation: No Lack of Food: Never True Current Housing: I Have Housing Concerned About Future Housing: No Difficulty Paying Gas/Electric Bills: No Difficulty Paying for Meds: No Currently Unemployed: No Education: High School Diploma/GED Difficulty w/ Childcare or Family Care: No Living arrangements: alone Gender identity (if verbalized by the patient): Female Spiritual care concerns: No Comments At time of signature, agree with nursing past medical, surgical, social and family history. There is no relevant family history pertinent to the presenting complaint. Exam Narrative: GENERAL: This is a well-nourished, well-developed patient, in no apparent distress. HEAD: normocephalic, atraumatic. EYES: PERRL. Sclera clear/white. Vision is grossly intact. EARS: External ears normal NOSE: External nose normal NECK: Neck supple, non-tender without lymphadenopathy, masses or thyromegaly. CARDIOVASCULAR: Regular rate and rhythm without murmurs, gallops, or rubs. RESPIRATORY: Clear to auscultation. Breath sounds equal bilaterally. No wheezes, rales, or rhonchi. SKIN: warm, Dry, intact with no suspicious lesions or rash, good texture and turgor. NEURO: awake, alert, and oriented to person, place and time. There were no obvious focal neurologic abnormalities. EXTREMITIES: No joint tenderness, effusion, or edema noted. BACK: No CVA tenderness. Course Course Level of Care: Express Care Visit Vital Signs Vital signs: Vital Signs Temperature 36.4 C L 04/17/25 08:29 Pulse Rate 74 04/17/25 08:29 Respiratory Rate 20 04/17/25 08:29 Blood Pressure 159/98 H 04/17/25 08:29 Pulse Oximetry 100 04/17/25 08:29 Oxygen Delivery Room Air 04/17/25 08:29 Temperature 36.4 C L 04/17/25 08:29 Pulse Rate 74 04/17/25 08:29 Respiratory Rate 20 04/17/25 08:29 Blood Pressure 159/98 H 04/17/25 08:29 Pulse Oximetry 100 04/17/25 08:29 Oxygen Delivery Room Air 04/17/25 08:29 reviewed MDM - Female Genitourinary MDM Narrative Medical decision making narrative: Positive leukocytes, nitrites, blood and UA. Urine culture ordered. Patient is well-appearing, nontoxic. Will treat with Bactrim. Lab Data Labs: Lab Results 04/17/25 Range/Units 08:35 POC Urine Color Yellow POC Urine Clarity Cloudy POC Urine pH 6.0 POC Ur Specif [place] 1.015 POC Urine Protein 1+ (Negative) POC Ur Glucose (UA) Negative (Negative) POC Urine Ketones Negative (Negative) POC Urine Blood 2+ (Negative) POC Urine Nitrite Positive (Negative) POC Urine Bilirubin Negative (Negative) POC Urine Urobilinogen 0.2 POC U Leukocyte Esteras 3+ (Negative) Discharge Plan Discharge Clinical Impression: Urinary tract infection Qualifiers: Urinary tract infection type: site unspecified Hematuria presence: with hematuria Qualified Code(s): N39.0 - Urinary tract infection, site not specified Patient Disposition: Home Condition: Stable Instructions: Antibiotic Form, Urinary Tract Infection in Women (ED) Additional Instructions: Take antibiotic as prescribed until gone. Drink at least 64 oz of water a day. See your doctor if not improving. If you have severe pain, vomiting, fever go to the ER. Patient Language: Estonian Prescriptions: New sulfamethoxazole-trimethoprim [Bactrim DS] 800-160 mg tablet 1 tablet PO Q12H 5 Days Qty: 10 0RF No Action prednisone 20 mg tablet 40 mg PO DAILY 4 Days Qty: 8 0RF valacyclovir 1 gram tablet 1,000 mg PO Q8H 7 Days Qty: 21 0RF alprazolam [Xanax] 0.25 mg Tablet 0.5 mg PO DAILY PRN (Reason: Anxiety) sertraline 50 mg tablet 150 mg PO DAILY ciprofloxacin HCl 500 mg tablet 500 mg PO Q12H 7 Days Qty: 14 0RF Follow-up/Referrals: Poncho Keene MD [Primary Care Provider, [facility]] Time of Disposition: 08:55
== END 2025-04-17 08:58 | disposition home or self-care (01) ==
PROVIDERS: Emergency Provider Nurse Practitioner Family; PCP Family Medicine
DX: N39.0 Urinary tract infection, site not specified (principal); F17.290 Nicotine dependence, other tobacco product, uncomplicated; F41.9 Anxiety disorder, unspecified; F32.A Depression, unspecified; E03.9 Hypothyroidism, unspecified; M41.9 Scoliosis, unspecified
CPT/HCPCS: 81003; 87077; 87086; 87186; 99213; G0463